=== PATIENT | male | born 1975 | race Caucasian/White ===

== ENCOUNTER 2017-09-24 13:08 | Emergency (ER) | payer SELFPAY ==
[~2017-09-24] VITALS: Ht 188 cm; Wt 121.6 kg
[2017-09-24 14:02] VITALS: BP 136/77
== END 2017-09-24 14:39 | disposition home or self-care (01) ==
LOC: ER 13:08
DX: J20.9 Acute bronchitis, unspecified (principal); F17.210 Nicotine dependence, cigarettes, uncomplicated

== ENCOUNTER 2017-12-15 15:10 | Inpatient (IN) | payer MEDICAID ==
[~2017-12-15] VITALS: Ht 188 cm; Wt 116.3 kg
[2017-12-15] MEDS ORDERED: SODIUM CHLORIDE 0.9% 1,000 ML IV ONE ×2 (15:28→15:47)
[2017-12-15 15:42] LABS: Eosinophils # (auto) 0.1 uL; Hematocrit 42.9 % (41.0-53.0); Lymphocytes # (auto) 1.5 uL; Mean Corpuscular Hemoglobin 35.1 pg (28.0-32.0); Mean Corpuscular Hgb Conc. 34.9 g/dL (32.0-36.0); Monocytes # (auto) 0.4 uL; Nucleated Red Blood Cells % 0.1 %; Red Blood Cells 4.27 10^6/uL (4.5-5.90)
[2017-12-15 15:46] LABS: Basophils # (auto) 0 uL; Basophils % (auto) 0.6 % (0.0-2.0); Eosinophils % (auto) 1.4 % (0.0-7.0); Lymphocytes % (auto) 19.4 % (10.0-50.0); Mean Corpuscular Volume 100.6 fL (80.0-100.0); Monocytes % (auto) 5.2 % (0.0-12.0); Neutrophils # (auto) 5.5 uL; Neutrophils % (auto) 73.4 % (37.0-80.0); Platelet Count (auto) 309 10^3/uL (140-450); Red Cell Distribution Width 11.8 % (11.8-14.3); White Blood Cell 7.5 10^3/uL (4.4-10.8)
[2017-12-15 16:00] LABS: Alanine Aminotransferase 61 U/L (16-61); Albumin 3.4 g/dL (3.4-5.0); Anion Gap 11 (5-15); Aspartate Aminotransferase 42 U/L (15-37); BUN/Creatinine Ratio 16.1; Blood Urea Nitrogen 41 mg/dL (7-18); Calcium 9.4 mg/dL (8.5-10.1); Carbon Dioxide 23 mmol/L (21-32); Chloride 90 mmol/L (98-107); GFR African American 36 mL/min; GFR Non-African American 30 mL/min; Potassium 5.3 mmol/L (3.5-5.1); Sodium 124 mmol/L (136-145); Total Protein 8.3 g/dL (6.4-8.2)
[2017-12-15] MEDS ORDERED: NALBUPHINE HCL 10 MG/1ml INJECTION IV ONE (16:00)
[2017-12-15] MEDS ORDERED: METOCLOPRAMIDE HCL 5MG/ml INJ 2ml VIAL IV ONE (16:00)
[2017-12-15 16:07] LABS: Alkaline Phosphatase 131 U/L (45-117); Bilirubin, Total 0.5 mg/dL (0.2-1.0)
[2017-12-15 16:25] LABS: Glucose 700 mg/dL (74-106)
[2017-12-15] MEDS ORDERED: InsuLIN R (HUMAN) 100 UNITS in SODIUM CHL 0.9% 99 ML IV SCH (17:26)
[2017-12-15] MEDS ORDERED: DEXTROSE (50%) 50ML SYRG IV PRN ×2 (17:30→17:45)
[2017-12-15] MEDS ORDERED: InsuLIN REG 1unit/0.01ml Soln (100units/ml) IV ONE (17:30)
[2017-12-15] MEDS ORDERED: ACETAMINOPHEN 500 MG TAB PO PRN (17:45)
[2017-12-15] MEDS ORDERED: HYDROcodone-ACET 5/325MG TAB PO PRN (17:45)
[2017-12-15] MEDS ORDERED: chlordiazePOXIDE HCL 25 MG CAP PO PRN (17:45)
[2017-12-15] MEDS ORDERED: NITROGLYCERIN 0.4 MG SL TAB SL PRN (17:45)
[2017-12-15] MEDS ORDERED: LORazepam 0.5 MG TAB PO PRN (17:45)
[2017-12-15] MEDS ORDERED: PROMETHAZINE HCL 25 MG/ML 1ML IV PRN (17:45)
[2017-12-15] MEDS ORDERED: THIAMINE 100mg/ml INJ (200mg/2ml VIAL) IV ONE (17:45)
[2017-12-15] MEDS ORDERED: MORPHINE SULFATE 8mg/ml INJ SDV IV PRN ×3 (17:45→18:30)
[2017-12-15] MEDS: ACCU-CHEK COMFORT CURVE STRIP VI SCH ×5 (17:49→23:48)
[2017-12-15] MEDS ORDERED: LIDOCAINE HCL 2% TOP JELLY 5ML TOP ONE (18:05)
[2017-12-15 18:09] LABS: Urine Bacteria NONE SEEN /hpf (None Seen); Urine Blood Negative /uL (Negative); Urine WBC 9 /hpf (0 - 3)
[2017-12-15 18:22] LABS: INR 0.86 (0.9-1.15); Partial Thromboplastin Time 25.7 sec (22.64-33.71); Prothrombin Time 9.4 sec (9.37-12.3)
[2017-12-15 18:25] LABS: Alcohol, Urine < 3.0 mg/dL (0-5); Amphetamine Screen, Urine NEGATIVE (NEGATIVE); Barbiturate Scree,Urine NEGATIVE (NEGATIVE); Benzodiazephine Screen, Urine NEGATIVE (NEGATIVE); Cannabinoid Screen, Urine NEGATIVE (NEGATIVE); Cocaine Screen, Urine NEGATIVE (NEGATIVE); Opiate Scree,Urine NEGATIVE (NEGATIVE); Phencyclidine Screen, Urine NEGATIVE (NEGATIVE)
[2017-12-15] MEDS: SODIUM CHLORIDE 0.9% 1,000 ML IV SCH (18:29)
[2017-12-15] MEDS ORDERED: LIDOCAINE 2% (LOCAL ANESTH.) PF 5ml SDV IJ ONE (18:30)
[2017-12-15] MEDS: chlordiazePOXIDE HCL 5 MG CAP PO SCH (18:35)
[2017-12-15 18:38] LABS: CRP High Sensitivity 3.24 mg/dL (< 0.3)
[2017-12-15] MEDS: NYSTATIN TOPICAL POWDER 15GM TOP SCH (21:51)
[2017-12-16] MEDS: SODIUM CHLORIDE 0.9% 1,000 ML IV SCH ×4 (00:06→21:02)
[2017-12-16] MEDS: ACCU-CHEK COMFORT CURVE STRIP VI SCH ×6 (01:48→08:36)
[2017-12-16] MEDS: chlordiazePOXIDE HCL 5 MG CAP PO SCH ×4 (05:51→17:52)
[2017-12-16 07:10] LABS: Basophils # (auto) 0 uL; Eosinophils # (auto) 0.2 uL; Hemoglobin 12.4 g/dL (13.5-17.5); Monocytes # (auto) 0.5 uL
[2017-12-16 07:13] LABS: Basophils % (auto) 0.3 % (0.0-2.0); Eosinophils % (auto) 2.1 % (0.0-7.0); Lymphocytes # (auto) 1.8 uL; Lymphocytes % (auto) 19.5 % (10.0-50.0); Mean Corpuscular Hgb Conc. 35.4 g/dL (32.0-36.0); Mean Corpuscular Volume 98.8 fL (80.0-100.0); Neutrophils # (auto) 6.5 uL; Neutrophils % (auto) 72.1 % (37.0-80.0); Platelet Count (auto) 241 10^3/uL (140-450); Red Blood Cells 3.55 10^6/uL (4.5-5.90); Red Cell Distribution Width 11.7 % (11.8-14.3)
[2017-12-16 07:37] LABS: Albumin 2.9 g/dL (3.4-5.0); BUN/Creatinine Ratio 18.4; Bilirubin, Total 0.3 mg/dL (0.2-1.0); Calcium 8.7 mg/dL (8.5-10.1); Potassium 4.4 mmol/L (3.5-5.1); Total Protein 6.4 g/dL (6.4-8.2)
[2017-12-16] MEDS ORDERED: ACCU-CHEK COMFORT CURVE STRIP VI SCH (08:30)
[2017-12-16] MEDS ORDERED: DEXTROSE (50%) 50ML SYRG IV PRN ×2 (08:30→09:45)
[2017-12-16] MEDS ORDERED: SUCCINYLCHOLINE CHLORIDE 20 MG/ML 10ML VIAL IV ONE (08:59)
[2017-12-16] MEDS ORDERED: PROPOFOL 10 MG/ML 20 ML IV ONE (09:02)
[2017-12-16] MEDS ORDERED: ROCURONIUM 10MG/ML 10ML VIAL IV ONE (09:02)
[2017-12-16] MEDS ORDERED: LIDOCAINE HCL 2 %PF INJ 10ML AMP IJ ONE (09:02)
[2017-12-16] MEDS ORDERED: MIDAZOLAM HCL 1MG/1ML-2 ML VIAL ONE (09:02)
[2017-12-16] MEDS ORDERED: ceFAZolin 1GM/100ML 50 ML IV ONE (09:18)
[2017-12-16] MEDS ORDERED: METOCLOPRAMIDE HCL 5MG/ml INJ 2ml VIAL ONE (09:27)
[2017-12-16] MEDS ORDERED: MORPHINE SULFATE 8mg/ml INJ SDV IV PRN ×2 (09:30→10:30)
[2017-12-16] MEDS ORDERED: NALOXONE HCL 0.4 MG/ML VIAL IV PRN (09:30)
[2017-12-16] MEDS ORDERED: ONDANSETRON HCL 4 MG/2 ML VIAL IV ONE (09:30)
[2017-12-16] MEDS ORDERED: ACCU-CHEK COMFORT CURVE STRIP VI ONE (09:30)
[2017-12-16] MEDS ORDERED: fentaNYL CITRATE 100 MCG/2 ML VL ONE (09:36)
[2017-12-16 12:00] VITALS: BP 147/101
[2017-12-16] MEDS: PANTOPRAZOLE 40 MG TAB PO SCH (12:36)
[2017-12-16] MEDS: THIAMINE 100mg/ml INJ (200mg/2ml VIAL) IV SCH (12:36)
[2017-12-16] MEDS: InsuLIN REG 1unit/0.01ml Soln (100units/ml) SC SCH ×3 (12:38→21:02)
[2017-12-16 13:00] VITALS: BP 147/101
[2017-12-16] MEDS ORDERED: FUROSEMIDE 40 MG/4 ML VIAL IV ONE (15:00)
[2017-12-16] MEDS ORDERED: NICOTINE 21MG/24 HR TOPICAL PATCH TD ONE (16:45)
[2017-12-16] MEDS: NYSTATIN TOPICAL POWDER 15GM TOP SCH ×2 (16:50→21:02)
[2017-12-16 17:00] VITALS: BP 114/84
[2017-12-16] MEDS: glipiZIDE 5 MG TAB PO SCH (17:48)
[2017-12-16 21:45] VITALS: BP 107/75
[2017-12-17] MEDS: chlordiazePOXIDE HCL 5 MG CAP PO SCH ×5 (00:33→23:34)
[2017-12-17] MEDS: InsuLIN REG 1unit/0.01ml Soln (100units/ml) SC SCH ×6 (00:45→22:41)
[2017-12-17] MEDS: SODIUM CHLORIDE 0.9% 1,000 ML IV SCH ×3 (02:56→16:16)
[2017-12-17 05:00] VITALS: BP 126/75
[2017-12-17] MEDS: glipiZIDE 5 MG TAB PO SCH ×2 (06:06→17:45)
[2017-12-17 07:48] VITALS: BP 138/87
[2017-12-17] MEDS: NICOTINE 21MG/24 HR TOPICAL PATCH TD SCH (10:00)
[2017-12-17] MEDS: PANTOPRAZOLE 40 MG TAB PO SCH (10:22)
[2017-12-17] MEDS: NYSTATIN TOPICAL POWDER 15GM TOP SCH ×2 (10:23→22:42)
[2017-12-17] MEDS: THIAMINE 100mg/ml INJ (200mg/2ml VIAL) IV SCH (10:23)
[2017-12-17] MEDS ORDERED: DEXTROSE (50%) 50ML SYRG IV PRN (10:30)
[2017-12-17 11:24] VITALS: BP 105/69
[2017-12-17] MEDS: ACCU-CHEK COMFORT CURVE STRIP VI SCH ×3 (11:45→22:00)
[2017-12-17 16:29] VITALS: BP 95/64
[2017-12-17 22:00] VITALS: BP 140/80
[2017-12-17] MEDS ORDERED: INSULIN LANTUS (GLARGINE) 1 /0.01ml (100units/ml) SC SCH (22:00)
[2017-12-17] MEDS: TEMAZEPAM 15 MG CAP PO PRN (22:59)
[2017-12-18] MEDS: SODIUM CHLORIDE 0.9% 1,000 ML IV SCH ×3 (01:11→18:56)
[2017-12-18 05:00] VITALS: BP 119/73
[2017-12-18] MEDS: chlordiazePOXIDE HCL 5 MG CAP PO SCH ×3 (06:07→17:41)
[2017-12-18 06:10] LABS: BUN/Creatinine Ratio 8.5; Calcium 8.1 mg/dL (8.5-10.1); Potassium 4.5 mmol/L (3.5-5.1)
[2017-12-18 06:11] LABS: Eosinophils # (auto) 0.2 uL; Hematocrit 35.9 % (41.0-53.0); Hemoglobin 12.3 g/dL (13.5-17.5); Mean Corpuscular Hgb Conc. 34.3 g/dL (32.0-36.0); Neutrophils # (auto) 4.6 uL
[2017-12-18 06:13] LABS: Basophils # (auto) 0 uL; Basophils % (auto) 0.6 % (0.0-2.0); Eosinophils % (auto) 2.2 % (0.0-7.0); Lymphocytes # (auto) 2.1 uL; Lymphocytes % (auto) 28.2 % (10.0-50.0); Mean Corpuscular Hemoglobin 34.4 pg (28.0-32.0); Mean Corpuscular Volume 100.4 fL (80.0-100.0); Monocytes # (auto) 0.6 uL; Monocytes % (auto) 7.4 % (0.0-12.0); Neutrophils % (auto) 61.6 % (37.0-80.0); Nucleated Red Blood Cells % 0.1 %; Platelet Count (auto) 223 10^3/uL (140-450); Red Blood Cells 3.57 10^6/uL (4.5-5.90); Red Cell Distribution Width 11.7 % (11.8-14.3); White Blood Cell 7.5 10^3/uL (4.4-10.8)
[2017-12-18] MEDS: ACCU-CHEK COMFORT CURVE STRIP VI SCH ×4 (06:20→22:00)
[2017-12-18] MEDS: InsuLIN REG 1unit/0.01ml Soln (100units/ml) SC SCH ×4 (06:20→21:41)
[2017-12-18] MEDS: glipiZIDE 5 MG TAB PO SCH (06:20)
[2017-12-18 08:09] VITALS: BP 121/66
[2017-12-18] MEDS: NICOTINE 21MG/24 HR TOPICAL PATCH TD SCH (09:36)
[2017-12-18] MEDS: PANTOPRAZOLE 40 MG TAB PO SCH (09:36)
[2017-12-18] MEDS: THIAMINE 100mg/ml INJ (200mg/2ml VIAL) IV SCH (09:36)
[2017-12-18] MEDS: NYSTATIN TOPICAL POWDER 15GM TOP SCH ×2 (09:37→21:38)
[2017-12-18 12:56] VITALS: BP 104/70
[2017-12-18 17:04] VITALS: BP 105/60
[2017-12-18] MEDS: INSULIN LANTUS (GLARGINE) 1 /0.01ml (100units/ml) SC SCH (21:35)
[2017-12-18] MEDS: TEMAZEPAM 15 MG CAP PO PRN (21:38)
[2017-12-18 22:00] VITALS: BP 109/71
[2017-12-19] MEDS: SODIUM CHLORIDE 0.9% 1,000 ML IV SCH ×4 (01:36→21:36)
[2017-12-19 05:00] VITALS: BP 116/78
[2017-12-19] MEDS: ACCU-CHEK COMFORT CURVE STRIP VI SCH ×4 (06:28→22:00)
[2017-12-19] MEDS: chlordiazePOXIDE HCL 5 MG CAP PO SCH ×4 (06:29→17:08)
[2017-12-19] MEDS: InsuLIN REG 1unit/0.01ml Soln (100units/ml) SC SCH ×4 (06:30→22:00)
[2017-12-19 07:07] LABS: Eosinophils # (auto) 0.2 uL; Hematocrit 35.6 % (41.0-53.0); Hemoglobin 12.2 g/dL (13.5-17.5); Mean Corpuscular Hgb Conc. 34.3 g/dL (32.0-36.0); Monocytes # (auto) 0.5 uL; Monocytes % (auto) 6.9 % (0.0-12.0); Red Cell Distribution Width 11.6 % (11.8-14.3)
[2017-12-19 07:08] LABS: Calcium 8.3 mg/dL (8.5-10.1); Potassium 3.8 mmol/L (3.5-5.1)
[2017-12-19 07:10] LABS: Basophils # (auto) 0.1 uL; Basophils % (auto) 0.7 % (0.0-2.0); Eosinophils % (auto) 2.2 % (0.0-7.0); Mean Corpuscular Hemoglobin 34.4 pg (28.0-32.0); Mean Corpuscular Volume 100.5 fL (80.0-100.0); Neutrophils # (auto) 4.6 uL; Neutrophils % (auto) 63.2 % (37.0-80.0); Nucleated Red Blood Cells % 0.1 %; Platelet Count (auto) 243 10^3/uL (140-450); Red Blood Cells 3.55 10^6/uL (4.5-5.90); White Blood Cell 7.3 10^3/uL (4.4-10.8)
[2017-12-19 09:00] VITALS: BP 126/78
[2017-12-19] MEDS: NICOTINE 21MG/24 HR TOPICAL PATCH TD SCH (10:00)
[2017-12-19] MEDS: THIAMINE 100mg/ml INJ (200mg/2ml VIAL) IV SCH (10:51)
[2017-12-19] MEDS: PANTOPRAZOLE 40 MG TAB PO SCH (10:51)
[2017-12-19] MEDS: NYSTATIN TOPICAL POWDER 15GM TOP SCH ×2 (10:52→22:00)
[2017-12-19 15:45] VITALS: BP 116/74
[2017-12-19 22:00] VITALS: BP 117/70
[2017-12-19] MEDS: INSULIN LANTUS (GLARGINE) 1 /0.01ml (100units/ml) SC SCH (22:00)
[2017-12-20] VITALS (7 sets, daily range): BP systolic 94–127; BP diastolic 58–85
[2017-12-20] MEDS: chlordiazePOXIDE HCL 5 MG CAP PO SCH ×4 (00:53→17:35)
[2017-12-20] MEDS: TEMAZEPAM 15 MG CAP PO PRN (00:53)
[2017-12-20] MEDS: SODIUM CHLORIDE 0.9% 1,000 ML IV SCH ×3 (04:16→18:51)
[2017-12-20] MEDS: ACCU-CHEK COMFORT CURVE STRIP VI SCH ×4 (05:44→22:26)
[2017-12-20] MEDS: InsuLIN REG 1unit/0.01ml Soln (100units/ml) SC SCH ×4 (06:16→22:37)
[2017-12-20 06:46] LABS: Hemoglobin 13.1 g/dL (13.5-17.5); Mean Corpuscular Hemoglobin 34.2 pg (28.0-32.0); Monocytes # (auto) 0.4 uL; Neutrophils # (auto) 6.6 uL; Platelet Count (auto) 264 10^3/uL (140-450); Red Blood Cells 3.83 10^6/uL (4.5-5.90); Red Cell Distribution Width 11.7 % (11.8-14.3); White Blood Cell 8.3 10^3/uL (4.4-10.8)
[2017-12-20 06:50] LABS: Basophils # (auto) 0 uL; Basophils % (auto) 0.2 % (0.0-2.0); Eosinophils # (auto) 0.1 uL; Eosinophils % (auto) 1.8 % (0.0-7.0); Hematocrit 38.3 % (41.0-53.0); Lymphocytes # (auto) 1.1 uL; Lymphocytes % (auto) 13.3 % (10.0-50.0); Mean Corpuscular Hgb Conc. 34.1 g/dL (32.0-36.0); Mean Corpuscular Volume 100.2 fL (80.0-100.0); Monocytes % (auto) 5.3 % (0.0-12.0); Neutrophils % (auto) 79.4 % (37.0-80.0); Nucleated Red Blood Cells % 0.1 %
[2017-12-20 06:58] LABS: Calcium 8.4 mg/dL (8.5-10.1); Potassium 3.7 mmol/L (3.5-5.1)
[2017-12-20] MEDS ORDERED: ADENOSINE 99 MG in GIVE UN-DILUTED 0 ML IV STA (09:20)
[2017-12-20] MEDS: NYSTATIN TOPICAL POWDER 15GM TOP SCH ×2 (10:00→22:26)
[2017-12-20] MEDS: NICOTINE 21MG/24 HR TOPICAL PATCH TD SCH (10:00)
[2017-12-20] MEDS: THIAMINE 100mg/ml INJ (200mg/2ml VIAL) IV SCH (12:35)
[2017-12-20] MEDS: PANTOPRAZOLE 40 MG TAB PO SCH (12:35)
[2017-12-20] MEDS: INSULIN LANTUS (GLARGINE) 1 /0.01ml (100units/ml) SC SCH (22:39)
[2017-12-21] VITALS (7 sets, daily range): BP systolic 110–131; BP diastolic 63–80
[2017-12-21] MEDS: chlordiazePOXIDE HCL 5 MG CAP PO SCH ×5 (06:57→19:21)
[2017-12-21] MEDS: SODIUM CHLORIDE 0.9% 1,000 ML IV SCH ×3 (06:58→14:45)
[2017-12-21] MEDS: InsuLIN REG 1unit/0.01ml Soln (100units/ml) SC SCH ×4 (06:58→22:00)
[2017-12-21] MEDS: ACCU-CHEK COMFORT CURVE STRIP VI SCH ×4 (06:59→22:00)
[2017-12-21 07:23] LABS: Basophils # (auto) 0 uL; Eosinophils # (auto) 0.3 uL; Eosinophils % (auto) 2.6 % (0.0-7.0); Monocytes # (auto) 0.7 uL
[2017-12-21 07:24] LABS: BUN/Creatinine Ratio 9.3; Calcium 8.4 mg/dL (8.5-10.1); Potassium 3.5 mmol/L (3.5-5.1)
[2017-12-21 07:27] LABS: Basophils % (auto) 0.5 % (0.0-2.0); Hematocrit 33.3 % (41.0-53.0); Hemoglobin 11.4 g/dL (13.5-17.5); Lymphocytes # (auto) 1.9 uL; Lymphocytes % (auto) 18.3 % (10.0-50.0); Mean Corpuscular Hemoglobin 34.2 pg (28.0-32.0); Mean Corpuscular Hgb Conc. 34.2 g/dL (32.0-36.0); Monocytes % (auto) 6.8 % (0.0-12.0); Neutrophils # (auto) 7.4 uL; Neutrophils % (auto) 71.8 % (37.0-80.0); Nucleated Red Blood Cells % 0.1 %; Platelet Count (auto) 248 10^3/uL (140-450); Red Blood Cells 3.33 10^6/uL (4.5-5.90); Red Cell Distribution Width 11.7 % (11.8-14.3); White Blood Cell 10.3 10^3/uL (4.4-10.8)
[2017-12-21] MEDS: NICOTINE 21MG/24 HR TOPICAL PATCH TD SCH (10:00)
[2017-12-21] MEDS: PANTOPRAZOLE 40 MG TAB PO SCH (10:13)
[2017-12-21] MEDS: THIAMINE 100mg/ml INJ (200mg/2ml VIAL) IV SCH (10:13)
[2017-12-21] MEDS: NYSTATIN TOPICAL POWDER 15GM TOP SCH ×2 (10:14→22:00)
[2017-12-21] MEDS ORDERED: LACTULOSE 20Gm/30ML SOLN PO PRN (16:30)
[2017-12-21] MEDS: INSULIN LANTUS (GLARGINE) 1 /0.01ml (100units/ml) SC SCH (22:00)
[2017-12-22] MEDS: SODIUM CHLORIDE 0.9% 1,000 ML IV SCH ×3 (00:40→09:36)
[2017-12-22] MEDS: chlordiazePOXIDE HCL 5 MG CAP PO SCH ×3 (00:40→14:58)
[2017-12-22] MEDS: TEMAZEPAM 15 MG CAP PO PRN (00:44)
[2017-12-22 05:29] VITALS: BP 109/66
[2017-12-22] MEDS: ACCU-CHEK COMFORT CURVE STRIP VI SCH ×2 (06:34→12:54)
[2017-12-22] MEDS: InsuLIN REG 1unit/0.01ml Soln (100units/ml) SC SCH ×2 (06:35→12:55)
[2017-12-22] MEDS ORDERED: IOHEXOL 350 MG/ML 100ML IJ ONE ×3 (07:21→10:03)
[2017-12-22] MEDS ORDERED: LIDOCAINE 2%HCL (LOCAL ANESTH.) INJ 20ML MDV ONE ×2 (07:22→09:20)
[2017-12-22 07:35] LABS: Basophils # (auto) 0 uL; Basophils % (auto) 0.4 % (0.0-2.0); Eosinophils # (auto) 0.3 uL; Eosinophils % (auto) 2.8 % (0.0-7.0); Hematocrit 33.7 % (41.0-53.0); Hemoglobin 11.6 g/dL (13.5-17.5); Lymphocytes # (auto) 1.7 uL; Lymphocytes % (auto) 17.6 % (10.0-50.0); Mean Corpuscular Hgb Conc. 34.3 g/dL (32.0-36.0); Mean Corpuscular Volume 99.1 fL (80.0-100.0); Monocytes # (auto) 0.6 uL; Monocytes % (auto) 6.5 % (0.0-12.0); Neutrophils # (auto) 6.9 uL; Neutrophils % (auto) 72.7 % (37.0-80.0); Platelet Count (auto) 279 10^3/uL (140-450); Red Cell Distribution Width 11.8 % (11.8-14.3); White Blood Cell 9.4 10^3/uL (4.4-10.8)
[2017-12-22 08:00] LABS: BUN/Creatinine Ratio 7.4; Calcium 8.1 mg/dL (8.5-10.1); INR 0.94 (0.9-1.15); Partial Thromboplastin Time 31.3 sec (22.64-33.71); Potassium 3.3 mmol/L (3.5-5.1); Prothrombin Time 10.2 sec (9.37-12.3)
[2017-12-22] MEDS ORDERED: MIDAZOLAM HCL 1MG/1ML-2 ML VIAL ONE (09:21)
[2017-12-22] MEDS ORDERED: fentaNYL CITRATE 100 MCG/2 ML VL ONE (09:21)
[2017-12-22] MEDS ORDERED: SODIUM CHL 0.9% 50 ML ONE ×2 (09:37→10:13)
[2017-12-22] MEDS ORDERED: ANGIOMAX 250 MG VIAL IV ONE ×2 (09:37→10:13)
[2017-12-22] MEDS: THIAMINE 100mg/ml INJ (200mg/2ml VIAL) IV SCH (10:00)
[2017-12-22] MEDS: NICOTINE 21MG/24 HR TOPICAL PATCH TD SCH (10:00)
[2017-12-22] MEDS: PANTOPRAZOLE 40 MG TAB PO SCH (10:00)
[2017-12-22] MEDS ORDERED: CLOPIDOGREL 300 MG TAB ONE (10:04)
[2017-12-22] MEDS ORDERED: ASPirin 325 MG TAB ONE (10:04)
[2017-12-22] MEDS ORDERED: POTASSIUM CHL 10 Meq TABLET PO ONE (12:30)
[2017-12-22] MEDS: NYSTATIN TOPICAL POWDER 15GM TOP SCH (12:54)
[2017-12-22 16:45] VITALS: BP 116/79
[2017-12-23] MEDS ORDERED: CLOPIDOGREL BISULFATE 75 MG TAB PO SCH (10:00)
== END 2017-12-22 18:18 | disposition home or self-care (01) | DRG 175 ==
LOC: ER 15:18 → ICU CENTRL 15:19 → OVERFLOW 23:58 → TELE-CENTR 12-16 11:24
PROVIDERS: ADMIT Internal Medicine; ATTEND Internal Medicine
PROC: 027036Z Dilation of Coronary Artery, One Artery with Three Drug-eluting Intraluminal Devices, Percutaneous Approach (ICD-10-PCS; 2017-12-15)
PROC: 4A023N7 Measurement of Cardiac Sampling and Pressure, Left Heart, Percutaneous Approach (ICD-10-PCS; 2017-12-15)
PROC: 0T7D8ZZ Dilation of Urethra, Via Natural or Artificial Opening Endoscopic (ICD-10-PCS; principal; 2017-12-21)
PROC: B2011ZZ Plain Radiography of Multiple Coronary Arteries using Low Osmolar Contrast (ICD-10-PCS; 2017-12-22)
PROC: B2051ZZ Plain Radiography of Left Heart using Low Osmolar Contrast (ICD-10-PCS; 2017-12-22)
DX: I25.10 Atherosclerotic heart disease of native coronary artery without angina pectoris (principal); N17.0 Acute kidney failure with tubular necrosis; E11.00 Type 2 diabetes mellitus with hyperosmolarity without nonketotic hyperglycemic-hyperosmolar coma (NKHHC); E11.21 Type 2 diabetes mellitus with diabetic nephropathy; E11.40 Type 2 diabetes mellitus with diabetic neuropathy, unspecified; N35.9 Urethral stricture, unspecified; E11.22 Type 2 diabetes mellitus with diabetic chronic kidney disease; N40.1 Benign prostatic hyperplasia with lower urinary tract symptoms; E87.1 Hypo-osmolality and hyponatremia; E87.6 Hypokalemia; N13.30 Unspecified hydronephrosis; N18.9 Chronic kidney disease, unspecified; E44.1 Mild protein-calorie malnutrition; E87.5 Hyperkalemia; E66.9 Obesity, unspecified; Z68.32 Body mass index [BMI] 32.0-32.9, adult; F10.20 Alcohol dependence, uncomplicated; F17.210 Nicotine dependence, cigarettes, uncomplicated; F41.9 Anxiety disorder, unspecified; I12.9 Hypertensive chronic kidney disease with stage 1 through stage 4 chronic kidney disease, or unspecified chronic kidney disease; M47.816 Spondylosis without myelopathy or radiculopathy, lumbar region; N13.1 Hydronephrosis with ureteral stricture, not elsewhere classified; N31.9 Neuromuscular dysfunction of bladder, unspecified; Z79.02 Long term (current) use of antithrombotics/antiplatelets; Z79.899 Other long term (current) drug therapy; Z91.11 Patient's noncompliance with dietary regimen
CPT/HCPCS: 36415; 51702; 71045; 71046; 74176; 78707; 80048; 80053; 80061; 80307; 81001; 82150; 82550; 82962; 83036; 83690; 83735; 83880; 84443; 84484; 85025; 85610; 85652; 85730; 86141; 86850; 86900; 86901; 87086; 93005; 93306; 96365; 96375; 96376; 97116; 99152; 99153; 99291; C1874; C1887; G0378; J0153; J0330; J0690; J1815; J2250; J2704

== ENCOUNTER 2017-12-31 16:03 | Emergency (ER) | payer MEDICAID ==
[~2017-12-31] VITALS: Ht 188 cm; Wt 117.5 kg
[2017-12-31] MEDS ORDERED: SODIUM CHLORIDE 0.9% 1,000 ML IV ONE (16:45)
[2017-12-31 17:11] LABS: Basophils # (auto) 0.1 uL; Basophils % (auto) 0.5 % (0.0-2.0); Eosinophils # (auto) 0.4 uL; Hemoglobin 13.1 g/dL (13.5-17.5); Lymphocytes # (auto) 1.8 uL; Mean Corpuscular Volume 97.9 fL (80.0-100.0); Monocytes # (auto) 0.4 uL; Neutrophils # (auto) 9.1 uL
[2017-12-31] MEDS ORDERED: ATOR10TA52 PO (17:12)
[2017-12-31 17:13] LABS: Eosinophils % (auto) 3.5 % (0.0-7.0); Lymphocytes % (auto) 15.2 % (10.0-50.0); Mean Corpuscular Hemoglobin 33.8 pg (28.0-32.0); Mean Corpuscular Hgb Conc. 34.6 g/dL (32.0-36.0); Monocytes % (auto) 3.7 % (0.0-12.0); Neutrophils % (auto) 77.1 % (37.0-80.0); Nucleated Red Blood Cells % 0.1 %; Platelet Count (auto) 458 10^3/uL (140-450); Red Blood Cells 3.88 10^6/uL (4.5-5.90); Red Cell Distribution Width 11.6 % (11.8-14.3); White Blood Cell 11.7 10^3/uL (4.4-10.8)
[2017-12-31] MEDS ORDERED: CLOP75TA41 PO (17:13)
[2017-12-31] MEDS ORDERED: METO25TA62 PO (17:13)
[2017-12-31] MEDS ORDERED: INSLANTI SC (17:14)
[2017-12-31 17:22] LABS: Calcium 9.2 mg/dL (8.5-10.1); Chloride 95 mmol/L (98-107); Sodium 136 mmol/L (136-145)
[2017-12-31 17:26] LABS: Alanine Aminotransferase 23 U/L (16-61); Albumin 2.9 g/dL (3.4-5.0); Anion Gap 15 (5-15); Aspartate Aminotransferase 19 U/L (15-37); BUN/Creatinine Ratio 7.4; Blood Urea Nitrogen 9 mg/dL (7-18); Carbon Dioxide 26 mmol/L (21-32); GFR African American 85 mL/min; GFR Non-African American 70 mL/min; Glucose 226 mg/dL (74-106)
[2017-12-31 17:32] LABS: Alkaline Phosphatase 99 U/L (45-117); Bilirubin, Total 0.5 mg/dL (0.2-1.0); Total Protein 8.1 g/dL (6.4-8.2)
[2017-12-31] MEDS ORDERED: ACETAMINOPHEN 325 MG TAB PO ONE (18:15)
[2017-12-31 20:45] VITALS: BP 98/54
[2017-12-31] MEDS ORDERED: NITROGLYCERIN 0.4 MG SL TAB SL PRN (21:00)
[2017-12-31] MEDS ORDERED: ONDANSETRON HCL 4 MG/2 ML VIAL IV PRN (21:00)
[2017-12-31] MEDS ORDERED: DEXTROSE (50%) 50ML SYRG IV PRN (21:00)
[2017-12-31] MEDS ORDERED: MORPHINE SULFATE 8mg/ml INJ SDV IV PRN (21:00)
[2017-12-31] MEDS ORDERED: HYDROcodone-ACET 5/325MG TAB PO PRN (21:00)
[2017-12-31] MEDS ORDERED: TEMAZEPAM 15 MG CAP PO PRN (21:00)
[2017-12-31] MEDS ORDERED: ACETAMINOPHEN 325 MG TAB PO PRN (21:00)
[2017-12-31] MEDS ORDERED: FAMOTIDINE 20 MG TAB PO SCH (22:00)
[2017-12-31] MEDS ORDERED: ATORVASTATIN 20 MG TAB PO SCH (22:00)
[2018-01-01] MEDS ORDERED: InsuLIN REG 1unit/0.01ml Soln (100units/ml) SC SCH
[2018-01-01] MEDS ORDERED: ACCU-CHEK COMFORT CURVE STRIP VI SCH
[2018-01-01] MEDS ORDERED: ENOXAPARIN SOD 40 MG/0.4 ML SYRINGE SC SCH (10:00)
[2018-01-01] MEDS ORDERED: CLOPIDOGREL BISULFATE 75 MG TAB PO SCH (10:00)
== END 2017-12-31 21:48 | disposition home or self-care (01) ==
LOC: ER 16:06
DX: R55 Syncope and collapse (principal); D64.9 Anemia, unspecified; I95.9 Hypotension, unspecified; I25.10 Atherosclerotic heart disease of native coronary artery without angina pectoris; E11.9 Type 2 diabetes mellitus without complications; E78.5 Hyperlipidemia, unspecified; I25.2 Old myocardial infarction; F17.210 Nicotine dependence, cigarettes, uncomplicated; R53.1 Weakness; E66.9 Obesity, unspecified; Z68.33 Body mass index [BMI] 33.0-33.9, adult; Z79.4 Long term (current) use of insulin; Z98.61 Coronary angioplasty status; Z95.5 Presence of coronary angioplasty implant and graft
CPT/HCPCS: 36415; 70450; 71045; 80053; 84484; 85025; 93005

== ENCOUNTER 2018-01-13 13:02 | Emergency (ER) | payer MEDICAID ==
[~2018-01-13] VITALS: Ht 188 cm; Wt 105.7 kg
[~2018-01-13 13:02] MED LIST: ATOR10TA52 PO; CLOP75TA41 PO; INSLANTI SC; METO25TA62 PO
[2018-01-13 13:12] VITALS: BP 79/58
== END 2018-01-13 14:52 | disposition home or self-care (01) ==
LOC: ER 13:02
DX: N40.1 Benign prostatic hyperplasia with lower urinary tract symptoms (principal); R33.9 Retention of urine, unspecified; E11.22 Type 2 diabetes mellitus with diabetic chronic kidney disease; N18.9 Chronic kidney disease, unspecified; I25.10 Atherosclerotic heart disease of native coronary artery without angina pectoris; E78.5 Hyperlipidemia, unspecified; F17.210 Nicotine dependence, cigarettes, uncomplicated; I25.2 Old myocardial infarction; E11.40 Type 2 diabetes mellitus with diabetic neuropathy, unspecified; Z79.4 Long term (current) use of insulin

== ENCOUNTER 2018-01-19 09:18 | Inpatient (IN) | payer MEDICAID ==
[~2018-01-19] VITALS: Ht 188 cm; Wt 109.1 kg
[2018-01-19 10:00] LABS: Basophils # (auto) 0 uL; Basophils % (auto) 0.3 % (0.0-2.0); Eosinophils # (auto) 0 uL; Eosinophils % (auto) 0.2 % (0.0-7.0); Hematocrit 34.9 % (41.0-53.0); Hemoglobin 11.9 g/dL (13.5-17.5); Lymphocytes % (auto) 6.6 % (10.0-50.0); Mean Corpuscular Hemoglobin 32.6 pg (28.0-32.0); Mean Corpuscular Hgb Conc. 34.2 g/dL (32.0-36.0); Mean Corpuscular Volume 95.4 fL (80.0-100.0); Monocytes # (auto) 0.9 uL; Monocytes % (auto) 6.2 % (0.0-12.0); Neutrophils # (auto) 12.5 uL; Neutrophils % (auto) 86.7 % (37.0-80.0); Platelet Count (auto) 444 10^3/uL (140-450); Red Blood Cells 3.66 10^6/uL (4.5-5.90); Red Cell Distribution Width 12.4 % (11.8-14.3); White Blood Cell 14.4 10^3/uL (4.4-10.8)
[2018-01-19] MEDS: METOPROLOL SUCCINATE XL 50 MG TAB PO SCH (10:00)
[2018-01-19 10:16] LABS: Albumin 2.7 g/dL (3.4-5.0); Anion Gap 13 (5-15); Blood Urea Nitrogen 16 mg/dL (7-18); Calcium 8.7 mg/dL (8.5-10.1); Carbon Dioxide 20 mmol/L (21-32); Chloride 102 mmol/L (98-107); Glucose 202 mg/dL (74-106); Potassium 4.2 mmol/L (3.5-5.1); Sodium 135 mmol/L (136-145)
[2018-01-19 10:18] LABS: Alanine Aminotransferase 16 U/L (16-61); Aspartate Aminotransferase 9 U/L (15-37); BUN/Creatinine Ratio 11.1; GFR African American 69 mL/min; GFR Non-African American 57 mL/min
[2018-01-19 10:23] LABS: Alkaline Phosphatase 100 U/L (45-117); Bilirubin, Total 0.5 mg/dL (0.2-1.0)
[2018-01-19] MEDS ORDERED: SODIUM CHLORIDE 0.9% 1,000 ML IVB ONE (11:05)
[2018-01-19 11:39] LABS: INR 0.95 (0.9-1.15); Partial Thromboplastin Time 37.3 sec (23.78-33.04); Prothrombin Time 10.2 sec (9.27-12.13)
[2018-01-19 11:58] LABS: Urine Bacteria MANY /hpf (None Seen); Urine Blood TRACE /uL (Negative); Urine Specific Gravity 1.009 (1.001-1.035); Urine WBC 758 /hpf (0 - 3); Urine WBC Clumps PRESENT /hpf (None Seen)
[2018-01-19] MEDS ORDERED: ONDANSETRON HCL 4 MG/2 ML VIAL ONE (12:09)
[2018-01-19] MEDS ORDERED: cefTRIAXone 1GM/10ml IVPUSH 10 ML IV ONE ×2 (12:09→12:15)
[2018-01-19] MEDS ORDERED: ONDANSETRON HCL 4 MG/2 ML VIAL IV ONE (12:15)
[2018-01-19 12:44] LABS: Alcohol, Urine < 3.0 mg/dL (0-5); Amphetamine Screen, Urine NEGATIVE (NEGATIVE); Barbiturate Scree,Urine NEGATIVE (NEGATIVE); Benzodiazephine Screen, Urine NEGATIVE (NEGATIVE); Cannabinoid Screen, Urine NEGATIVE (NEGATIVE); Cocaine Screen, Urine NEGATIVE (NEGATIVE); Opiate Scree,Urine NEGATIVE (NEGATIVE); Phencyclidine Screen, Urine NEGATIVE (NEGATIVE)
[2018-01-19] MEDS ORDERED: NITROGLYCERIN 0.4 MG SL TAB SL PRN (13:15)
[2018-01-19] MEDS ORDERED: DEXTROSE (50%) 50ML SYRG IV PRN (13:15)
[2018-01-19] MEDS ORDERED: PANTOPRAZOLE 40 MG/10 ML VIAL IV ONE (13:15)
[2018-01-19] MEDS ORDERED: LACTULOSE 20Gm/30ML SOLN PO PRN (13:15)
[2018-01-19] MEDS ORDERED: LORazepam 0.5 MG TAB PO PRN (13:15)
[2018-01-19] MEDS ORDERED: MORPHINE SULFATE 8mg/ml INJ SDV IV PRN ×2 (13:15)
[2018-01-19] MEDS ORDERED: PIPERACILLIN-TAZOB 3.375GM 100 ML IV ONE (13:15)
[2018-01-19] MEDS ORDERED: ASPirin 81 mg TAB PO ONE (13:45)
[2018-01-19] MEDS ORDERED: PANTOPRAZOLE 40 MG TAB PO ONE (13:45)
[2018-01-19] MEDS ORDERED: METOPROLOL SUCCINATE XL 50 MG TAB PO ONE (13:45)
[2018-01-19] MEDS ORDERED: ENOXAPARIN SOD 40 MG/0.4 ML SYRINGE SC ONE (13:45)
[2018-01-19 14:31] LABS: Amylase 42 U/L (25-115); Lipase 786 U/L (73-393)
[2018-01-19] MEDS ORDERED: LIDOCAINE HCL 2% TOP JELLY 5ML TOP ONE (14:41)
[2018-01-19 16:00] VITALS: BP 138/89
[2018-01-19 17:00] VITALS: BP 138/89
[2018-01-19] MEDS: InsuLIN REG 1unit/0.01ml Soln (100units/ml) SC SCH ×2 (17:41→19:41)
[2018-01-19] MEDS: PIPERACILLIN-TAZOB 3.375GM 100 ML IV SCH (17:42)
[2018-01-19] MEDS: ACCU-CHEK COMFORT CURVE STRIP VI SCH ×2 (17:42→19:40)
[2018-01-19 20:00] VITALS: BP 97/59
[2018-01-19] MEDS ORDERED: ATORVASTATIN 20 MG TAB PO SCH (22:00)
[2018-01-19 22:25] VITALS: BP 97/59
[2018-01-19] MEDS: TEMAZEPAM 15 MG CAP PO PRN (22:29)
[2018-01-20] MEDS: ACCU-CHEK COMFORT CURVE STRIP VI SCH ×6 (00:11→22:30)
[2018-01-20] MEDS: InsuLIN REG 1unit/0.01ml Soln (100units/ml) SC SCH ×6 (00:18→22:31)
[2018-01-20] MEDS: PROMETHAZINE HCL 25 MG/ML 1ML IV PRN ×3 (01:10→17:51)
[2018-01-20] MEDS: ACETAMINOPHEN 500 MG TAB PO PRN ×2 (01:11→16:22)
[2018-01-20 05:26] VITALS: BP 104/66
[2018-01-20] MEDS: PIPERACILLIN-TAZOB 3.375GM 100 ML IV SCH ×5 (05:38→23:45)
[2018-01-20 06:01] LABS: Basophils # (auto) 0.1 uL; Basophils % (auto) 0.2 % (0.0-2.0); Eosinophils # (auto) 0 uL; Eosinophils % (auto) 0.1 % (0.0-7.0); Hematocrit 32.5 % (41.0-53.0); Lymphocytes # (auto) 1.1 uL; Lymphocytes % (auto) 4.6 % (10.0-50.0); Mean Corpuscular Hemoglobin 32.3 pg (28.0-32.0); Mean Corpuscular Hgb Conc. 33.9 g/dL (32.0-36.0); Mean Corpuscular Volume 95.3 fL (80.0-100.0); Monocytes # (auto) 1.7 uL; Monocytes % (auto) 6.8 % (0.0-12.0); Neutrophils # (auto) 21.4 uL; Neutrophils % (auto) 88.3 % (37.0-80.0); Platelet Count (auto) 382 10^3/uL (140-450); Red Blood Cells 3.41 10^6/uL (4.5-5.90); Red Cell Distribution Width 12.5 % (11.8-14.3); White Blood Cell 24.3 10^3/uL (4.4-10.8)
[2018-01-20 06:13] LABS: Albumin 2.6 g/dL (3.4-5.0); Bilirubin, Total 0.4 mg/dL (0.2-1.0); Calcium 8.9 mg/dL (8.5-10.1); Potassium 3.9 mmol/L (3.5-5.1); Total Protein 7.7 g/dL (6.4-8.2)
[2018-01-20 09:00] VITALS: BP 88/57
[2018-01-20] MEDS: PANTOPRAZOLE 40 MG TAB PO SCH (09:56)
[2018-01-20] MEDS: ASPirin 81 mg TAB PO SCH (09:56)
[2018-01-20] MEDS: CLOPIDOGREL BISULFATE 75 MG TAB PO SCH (09:56)
[2018-01-20] MEDS: ENOXAPARIN SOD 40 MG/0.4 ML SYRINGE SC SCH (09:57)
[2018-01-20] MEDS: METOPROLOL SUCCINATE XL 50 MG TAB PO SCH (10:00)
[2018-01-20] MEDS: INSULIN LANTUS (GLARGINE) 1 /0.01ml (100units/ml) SC SCH (10:04)
[2018-01-20] MEDS ORDERED: VANCOMYCIN PER PHARMACY 0 MG IV SCH (12:45)
[2018-01-20] MEDS ORDERED: SODIUM CHLORIDE 0.9% 1,000 ML IV ONE (12:45)
[2018-01-20 13:00] VITALS: BP 108/77
[2018-01-20] MEDS: SODIUM CHLORIDE 0.9% 1,000 ML IV SCH ×2 (13:40→22:31)
[2018-01-20] MEDS ORDERED: DEXTROSE (50%) 50ML SYRG IV PRN (16:30)
[2018-01-20] MEDS ORDERED: MORPHINE SULF INJ 2 MG/ML SYRINGE 1ML IV PRN ×2 (16:45)
[2018-01-20 17:00] VITALS: BP 135/83
[2018-01-20] MEDS: VANCOMYCIN 1GM/250ML 250 ML IV SCH (18:08)
[2018-01-20 22:00] VITALS: BP 145/57
[2018-01-20] MEDS: HYDROcodone-ACET 5/325MG TAB PO PRN (22:30)
[2018-01-20] MEDS: ATORVASTATIN 20 MG TAB PO SCH (22:31)
[2018-01-20] MEDS: TEMAZEPAM 15 MG CAP PO PRN (23:46)
[2018-01-21] MEDS: VANCOMYCIN 1GM/250ML 250 ML IV SCH ×2 (01:51→14:20)
[2018-01-21 05:00] VITALS: BP 138/61
[2018-01-21] MEDS: PIPERACILLIN-TAZOB 3.375GM 100 ML IV SCH ×3 (05:47→18:01)
[2018-01-21] MEDS: SODIUM CHLORIDE 0.9% 1,000 ML IV SCH ×3 (05:47→15:25)
[2018-01-21] MEDS: ACCU-CHEK COMFORT CURVE STRIP VI SCH ×3 (05:47→18:08)
[2018-01-21] MEDS: InsuLIN REG 1unit/0.01ml Soln (100units/ml) SC SCH ×3 (06:19→18:12)
[2018-01-21] MEDS: HYDROcodone-ACET 5/325MG TAB PO PRN ×3 (06:20→22:33)
[2018-01-21 08:00] VITALS: BP 134/80
[2018-01-21 09:15] LABS: Basophils # (auto) 0.1 uL; Basophils % (auto) 0.4 % (0.0-2.0); Eosinophils # (auto) 0.2 uL; Eosinophils % (auto) 0.7 % (0.0-7.0); Hemoglobin 10.2 g/dL (13.5-17.5); Lymphocytes # (auto) 1.1 uL; Lymphocytes % (auto) 5.1 % (10.0-50.0); Mean Corpuscular Hemoglobin 31.5 pg (28.0-32.0); Mean Corpuscular Volume 95.3 fL (80.0-100.0); Monocytes # (auto) 1.4 uL; Monocytes % (auto) 6.4 % (0.0-12.0); Neutrophils # (auto) 18.5 uL; Neutrophils % (auto) 87.4 % (37.0-80.0); Platelet Count (auto) 309 10^3/uL (140-450); Red Blood Cells 3.25 10^6/uL (4.5-5.90); Red Cell Distribution Width 12.5 % (11.8-14.3); White Blood Cell 21.2 10^3/uL (4.4-10.8)
[2018-01-21] MEDS: METOPROLOL SUCCINATE XL 50 MG TAB PO SCH (10:00)
[2018-01-21] MEDS: CLOPIDOGREL BISULFATE 75 MG TAB PO SCH (10:43)
[2018-01-21] MEDS: ASPirin 81 mg TAB PO SCH (10:43)
[2018-01-21] MEDS: PANTOPRAZOLE 40 MG TAB PO SCH (10:43)
[2018-01-21] MEDS: ENOXAPARIN SOD 40 MG/0.4 ML SYRINGE SC SCH (10:43)
[2018-01-21] MEDS: INSULIN LANTUS (GLARGINE) 1 /0.01ml (100units/ml) SC SCH (10:49)
[2018-01-21 12:00] VITALS: BP 118/66
[2018-01-21 16:00] VITALS: BP 111/61
[2018-01-21] MEDS: TAMSULOSIN HYDROCHLORIDE 0.4 MG CAP PO SCH (18:01)
[2018-01-21 22:00] VITALS: BP 123/77
[2018-01-21] MEDS: ATORVASTATIN 20 MG TAB PO SCH (22:11)
[2018-01-21] MEDS: TEMAZEPAM 15 MG CAP PO PRN (22:15)
[2018-01-22] MEDS: PIPERACILLIN-TAZOB 3.375GM 100 ML IV SCH ×5 (00:16→23:31)
[2018-01-22] MEDS: InsuLIN REG 1unit/0.01ml Soln (100units/ml) SC SCH ×5 (00:17→23:44)
[2018-01-22] MEDS: ACCU-CHEK COMFORT CURVE STRIP VI SCH ×5 (00:19→23:32)
[2018-01-22] MEDS: VANCOMYCIN 1GM/250ML 250 ML IV SCH ×2 (01:56→16:49)
[2018-01-22] MEDS: HYDROcodone-ACET 5/325MG TAB PO PRN ×3 (04:32→19:45)
[2018-01-22] MEDS: SODIUM CHLORIDE 0.9% 1,000 ML IV SCH ×5 (04:45→23:32)
[2018-01-22 05:00] VITALS: BP 114/67
[2018-01-22 06:26] LABS: Basophils # (auto) 0 uL; Basophils % (auto) 0.2 % (0.0-2.0); Eosinophils # (auto) 0.5 uL; Eosinophils % (auto) 3.4 % (0.0-7.0); Hematocrit 26.2 % (41.0-53.0); Hemoglobin 8.9 g/dL (13.5-17.5); Lymphocytes # (auto) 1.3 uL; Lymphocytes % (auto) 8.9 % (10.0-50.0); Mean Corpuscular Hemoglobin 32.1 pg (28.0-32.0); Mean Corpuscular Hgb Conc. 33.9 g/dL (32.0-36.0); Mean Corpuscular Volume 94.8 fL (80.0-100.0); Monocytes # (auto) 0.9 uL; Monocytes % (auto) 6.3 % (0.0-12.0); Neutrophils # (auto) 11.4 uL; Neutrophils % (auto) 81.2 % (37.0-80.0); Platelet Count (auto) 319 10^3/uL (140-450); Red Blood Cells 2.76 10^6/uL (4.5-5.90); Red Cell Distribution Width 12.3 % (11.8-14.3); White Blood Cell 14.1 10^3/uL (4.4-10.8)
[2018-01-22 06:42] LABS: Potassium 3.1 mmol/L (3.5-5.1)
[2018-01-22 06:44] LABS: BUN/Creatinine Ratio 4.9
[2018-01-22 06:47] LABS: Bilirubin, Total 0.5 mg/dL (0.2-1.0); Total Protein 6.8 g/dL (6.4-8.2)
[2018-01-22 08:00] VITALS: BP 112/56
[2018-01-22] MEDS: METOPROLOL SUCCINATE XL 50 MG TAB PO SCH (10:00)
[2018-01-22] MEDS: PANTOPRAZOLE 40 MG TAB PO SCH (10:09)
[2018-01-22] MEDS: CLOPIDOGREL BISULFATE 75 MG TAB PO SCH (10:09)
[2018-01-22] MEDS: ASPirin 81 mg TAB PO SCH (10:09)
[2018-01-22] MEDS: ENOXAPARIN SOD 40 MG/0.4 ML SYRINGE SC SCH (10:10)
[2018-01-22] MEDS: INSULIN LANTUS (GLARGINE) 1 /0.01ml (100units/ml) SC SCH (10:12)
[2018-01-22 12:46] VITALS: BP 134/78
[2018-01-22 16:39] VITALS: BP 127/82
[2018-01-22] MEDS: TAMSULOSIN HYDROCHLORIDE 0.4 MG CAP PO SCH (18:15)
[2018-01-22 22:00] VITALS: BP 130/80
[2018-01-22] MEDS: ATORVASTATIN 20 MG TAB PO SCH (22:18)
[2018-01-22] MEDS: TEMAZEPAM 15 MG CAP PO PRN (22:19)
[2018-01-22] MEDS ORDERED: POTASSIUM CHL 20 Meq TABLET PO ONE (22:45)
[2018-01-23] MEDS: VANCOMYCIN 1GM/250ML 250 ML IV SCH ×2 (02:00→15:07)
[2018-01-23] MEDS: HYDROcodone-ACET 5/325MG TAB PO PRN ×3 (04:16→18:57)
[2018-01-23] MEDS: PROMETHAZINE HCL 25 MG/ML 1ML IV PRN ×2 (04:16→18:58)
[2018-01-23 05:00] VITALS: BP 118/82
[2018-01-23] MEDS: PIPERACILLIN-TAZOB 3.375GM 100 ML IV SCH ×4 (06:09→23:40)
[2018-01-23] MEDS: ACCU-CHEK COMFORT CURVE STRIP VI SCH ×4 (06:09→23:40)
[2018-01-23 06:10] LABS: Basophils # (auto) 0 uL; Basophils % (auto) 0.5 % (0.0-2.0); Eosinophils # (auto) 0.4 uL; Eosinophils % (auto) 3.9 % (0.0-7.0); Hematocrit 29.2 % (41.0-53.0); Hemoglobin 10.2 g/dL (13.5-17.5); Lymphocytes # (auto) 0.7 uL; Lymphocytes % (auto) 7.5 % (10.0-50.0); Mean Corpuscular Hemoglobin 32.5 pg (28.0-32.0); Mean Corpuscular Hgb Conc. 34.8 g/dL (32.0-36.0); Mean Corpuscular Volume 93.4 fL (80.0-100.0); Monocytes # (auto) 0.7 uL; Neutrophils # (auto) 7.4 uL; Neutrophils % (auto) 80.1 % (37.0-80.0); Platelet Count (auto) 308 10^3/uL (140-450); Red Blood Cells 3.13 10^6/uL (4.5-5.90); Red Cell Distribution Width 12.5 % (11.8-14.3); White Blood Cell 9.3 10^3/uL (4.4-10.8)
[2018-01-23 06:16] LABS: BUN/Creatinine Ratio 5.4; Calcium 8.4 mg/dL (8.5-10.1); Potassium 3.3 mmol/L (3.5-5.1)
[2018-01-23] MEDS: InsuLIN REG 1unit/0.01ml Soln (100units/ml) SC SCH ×3 (06:32→18:00)
[2018-01-23 09:28] VITALS: BP 101/63
[2018-01-23] MEDS: METOPROLOL SUCCINATE XL 50 MG TAB PO SCH (10:00)
[2018-01-23] MEDS: ASPirin 81 mg TAB PO SCH (10:27)
[2018-01-23] MEDS: PANTOPRAZOLE 40 MG TAB PO SCH (10:27)
[2018-01-23] MEDS: CLOPIDOGREL BISULFATE 75 MG TAB PO SCH (10:28)
[2018-01-23] MEDS: ENOXAPARIN SOD 40 MG/0.4 ML SYRINGE SC SCH (10:30)
[2018-01-23] MEDS: INSULIN LANTUS (GLARGINE) 1 /0.01ml (100units/ml) SC SCH (10:31)
[2018-01-23] MEDS: SODIUM CHLORIDE 0.9% 1,000 ML IV SCH ×3 (11:35→20:45)
[2018-01-23 13:00] VITALS: BP 112/78
[2018-01-23 17:26] VITALS: BP 132/87
[2018-01-23] MEDS: TAMSULOSIN HYDROCHLORIDE 0.4 MG CAP PO SCH (18:57)
[2018-01-23] MEDS: ATORVASTATIN 20 MG TAB PO SCH (21:41)
[2018-01-23] MEDS: TEMAZEPAM 15 MG CAP PO PRN (21:41)
[2018-01-23 22:00] VITALS: BP 120/80
[2018-01-24] MEDS: InsuLIN REG 1unit/0.01ml Soln (100units/ml) SC SCH ×3 (00:01→12:00)
[2018-01-24] MEDS: VANCOMYCIN 1GM/250ML 250 ML IV SCH (01:55)
[2018-01-24] MEDS: SODIUM CHLORIDE 0.9% 1,000 ML IV SCH ×2 (03:40→10:05)
[2018-01-24] MEDS: HYDROcodone-ACET 5/325MG TAB PO PRN (04:05)
[2018-01-24] MEDS: PROMETHAZINE HCL 25 MG/ML 1ML IV PRN (04:06)
[2018-01-24 05:00] VITALS: BP 137/88
[2018-01-24] MEDS: ACCU-CHEK COMFORT CURVE STRIP VI SCH ×2 (05:44→12:17)
[2018-01-24] MEDS: PIPERACILLIN-TAZOB 3.375GM 100 ML IV SCH (05:44)
[2018-01-24 06:08] LABS: Basophils # (auto) 0.1 uL; Basophils % (auto) 0.5 % (0.0-2.0); Eosinophils # (auto) 0.3 uL; Eosinophils % (auto) 2.4 % (0.0-7.0); Hematocrit 29.2 % (41.0-53.0); Hemoglobin 10.1 g/dL (13.5-17.5); Lymphocytes # (auto) 0.8 uL; Lymphocytes % (auto) 7.4 % (10.0-50.0); Mean Corpuscular Hemoglobin 32.6 pg (28.0-32.0); Mean Corpuscular Hgb Conc. 34.7 g/dL (32.0-36.0); Monocytes # (auto) 0.9 uL; Monocytes % (auto) 8.8 % (0.0-12.0); Neutrophils # (auto) 8.5 uL; Neutrophils % (auto) 80.9 % (37.0-80.0); Platelet Count (auto) 331 10^3/uL (140-450); Red Cell Distribution Width 12.6 % (11.8-14.3); White Blood Cell 10.5 10^3/uL (4.4-10.8)
[2018-01-24 06:10] LABS: Calcium 8.4 mg/dL (8.5-10.1); Potassium 3.1 mmol/L (3.5-5.1)
[2018-01-24 06:12] LABS: BUN/Creatinine Ratio 6.1
[2018-01-24 08:00] VITALS: BP 109/73
[2018-01-24] MEDS ORDERED: AMOX-263 PO (09:38)
[2018-01-24] MEDS ORDERED: TAM04C PO (09:38)
[2018-01-24] MEDS ORDERED: AMOXICILLIN/CLAVUL 875 MG TAB PO SCH (10:00)
[2018-01-24] MEDS: METOPROLOL SUCCINATE XL 50 MG TAB PO SCH ×2 (10:00→11:54)
[2018-01-24] MEDS: ASPirin 81 mg TAB PO SCH (11:53)
[2018-01-24] MEDS: CLOPIDOGREL BISULFATE 75 MG TAB PO SCH (11:53)
[2018-01-24] MEDS: PANTOPRAZOLE 40 MG TAB PO SCH (11:54)
[2018-01-24] MEDS: ENOXAPARIN SOD 40 MG/0.4 ML SYRINGE SC SCH (11:54)
[2018-01-24] MEDS: INSULIN LANTUS (GLARGINE) 1 /0.01ml (100units/ml) SC SCH (12:37)
[2018-01-24 12:44] VITALS: BP 126/84
[2018-01-24 14:32] VITALS: BP 109/73
== END 2018-01-24 17:19 | disposition home or self-care (01) | DRG 720 ==
LOC: EDBD 09:18 → ER 09:18 → EDUNIT# 09:18 → TELE 09:19 → TELE-WESTW 15:47
PROVIDERS: ADMIT Internal Medicine; ATTEND Internal Medicine
DX: A41.81 Sepsis due to Enterococcus (principal); N17.0 Acute kidney failure with tubular necrosis; E43 Unspecified severe protein-calorie malnutrition; E11.22 Type 2 diabetes mellitus with diabetic chronic kidney disease; E11.40 Type 2 diabetes mellitus with diabetic neuropathy, unspecified; E11.65 Type 2 diabetes mellitus with hyperglycemia; N39.0 Urinary tract infection, site not specified; I12.9 Hypertensive chronic kidney disease with stage 1 through stage 4 chronic kidney disease, or unspecified chronic kidney disease; N18.9 Chronic kidney disease, unspecified; B95.8 Unspecified staphylococcus as the cause of diseases classified elsewhere; D64.9 Anemia, unspecified; E78.5 Hyperlipidemia, unspecified; F17.210 Nicotine dependence, cigarettes, uncomplicated; F41.9 Anxiety disorder, unspecified; I25.10 Atherosclerotic heart disease of native coronary artery without angina pectoris; N13.8 Other obstructive and reflux uropathy; N35.9 Urethral stricture, unspecified; N40.1 Benign prostatic hyperplasia with lower urinary tract symptoms; R32 Unspecified urinary incontinence; Z79.4 Long term (current) use of insulin; Z80.8 Family history of malignant neoplasm of other organs or systems; Z82.49 Family history of ischemic heart disease and other diseases of the circulatory system; Z95.5 Presence of coronary angioplasty implant and graft; Z79.899 Other long term (current) drug therapy; Z79.82 Long term (current) use of aspirin
CPT/HCPCS: 36415; 71045; 76775; 80048; 80053; 80061; 80202; 80307; 81001; 82150; 82550; 82565; 82962; 83036; 83605; 83690; 83735; 83880; 84443; 84484; 85025; 85379; 85610; 85652; 85730; 87040; 87077; 87086; 87088; 87186; 93005; 94761; 96361; 96365; 96375; C9113; J1815; J2405; J2543

== ENCOUNTER 2018-02-01 14:37 | Inpatient (IN) | payer MEDICAID ==
[~2018-02-01] VITALS: Ht 188 cm; Wt 105.0 kg
[~2018-02-01 14:37] MED LIST changes: +AMOX-263 PO; +TAM04C PO
[2018-02-01] MEDS ORDERED: SODIUM CHLORIDE 0.9% 500 ML IV ONE (14:47)
[2018-02-01 15:17] LABS: Basophils # (auto) 0.1 uL; Eosinophils # (auto) 0.3 uL; Eosinophils % (auto) 3.5 % (0.0-7.0); Lymphocytes # (auto) 1.7 uL; Monocytes # (auto) 0.5 uL
[2018-02-01 15:18] LABS: Basophils % (auto) 0.8 % (0.0-2.0); Hematocrit 30.3 % (41.0-53.0); Hemoglobin 10.1 g/dL (13.5-17.5); Lymphocytes % (auto) 17.5 % (10.0-50.0); Mean Corpuscular Hemoglobin 31.1 pg (28.0-32.0); Mean Corpuscular Hgb Conc. 33.5 g/dL (32.0-36.0); Monocytes % (auto) 5.7 % (0.0-12.0); Neutrophils # (auto) 6.9 uL; Neutrophils % (auto) 72.5 % (37.0-80.0); Platelet Count (auto) 727 10^3/uL (140-450); Red Blood Cells 3.26 10^6/uL (4.5-5.90); Red Cell Distribution Width 13.6 % (11.8-14.3); White Blood Cell 9.5 10^3/uL (4.4-10.8)
[2018-02-01 15:28] LABS: Alanine Aminotransferase 15 U/L (16-61); Albumin 2.2 g/dL (3.4-5.0); Alkaline Phosphatase 117 U/L (45-117); Anion Gap 10 (5-15); Aspartate Aminotransferase 10 U/L (15-37); BUN/Creatinine Ratio 9.8; Bilirubin, Total 0.2 mg/dL (0.2-1.0); Blood Urea Nitrogen 12 mg/dL (7-18); Calcium 8.5 mg/dL (8.5-10.1); Carbon Dioxide 25 mmol/L (21-32); Chloride 96 mmol/L (98-107); GFR African American 84 mL/min; GFR Non-African American 69 mL/min; Magnesium 1.9 mg/dL (1.6-2.6); Potassium 4.3 mmol/L (3.5-5.1); Sodium 131 mmol/L (136-145); Total Protein 8.1 g/dL (6.4-8.2)
[2018-02-01 15:37] LABS: Glucose 412 mg/dL (74-106)
[2018-02-01] MEDS ORDERED: InsuLIN REG 1unit/0.01ml Soln (100units/ml) IV ONE (16:15)
[2018-02-01] MEDS: SODIUM CHLORIDE 0.9% 1,000 ML IV SCH ×2 (16:23→23:52)
[2018-02-01] MEDS ORDERED: NITROGLYCERIN 0.4 MG SL TAB SL PRN (16:30)
[2018-02-01] MEDS ORDERED: DEXTROSE (50%) 50ML SYRG IV PRN (16:30)
[2018-02-01] MEDS ORDERED: CLOPIDOGREL BISULFATE 75 MG TAB PO ONE (16:30)
[2018-02-01] MEDS ORDERED: ONDANSETRON HCL 4 MG/2 ML VIAL IV PRN (16:30)
[2018-02-01] MEDS ORDERED: MORPHINE SULF(PF) 0.5MG/ML 10ML VIAL IV PRN (16:30)
[2018-02-01] MEDS ORDERED: ASPirin-EC 81 mg tab PO ONE (16:30)
[2018-02-01] MEDS ORDERED: DOCUSATE SOD 100 MG CAP PO PRN (16:30)
[2018-02-01] MEDS ORDERED: ACETAMINOPHEN 325 MG TAB PO PRN (16:30)
[2018-02-01] MEDS: FAMOTIDINE 20 MG TAB PO SCH ×2 (16:36→22:00)
[2018-02-01] MEDS: InsuLIN REG 1unit/0.01ml Soln (100units/ml) SC SCH ×2 (17:00→22:00)
[2018-02-01] MEDS: ACCU-CHEK COMFORT CURVE STRIP VI SCH ×2 (17:00→22:40)
[2018-02-01] MEDS: Boost Glucose Control 8 Ounces PO SCH (20:12)
[2018-02-01 20:47] LABS: Urine Bacteria NONE SEEN /hpf (None Seen); Urine Blood Negative /uL (Negative); Urine WBC 11 /hpf (0 - 3)
[2018-02-01 21:00] VITALS: BP 108/74
[2018-02-01 22:00] VITALS: BP_SYST 108; BP_SYST 78; BP_SYST 99; BP_DIAS 43; BP_DIAS 67; BP_DIAS 74
[2018-02-01] MEDS: AMOXICILLIN/CLAVUL 875 MG TAB PO SCH (22:00)
[2018-02-01] MEDS: ATORVASTATIN 20 MG TAB PO SCH (22:39)
[2018-02-01] MEDS: HYDROcodone-ACET 5/325MG TAB PO PRN (22:40)
[2018-02-01] MEDS: INSULIN LANTUS (GLARGINE) 1 /0.01ml (100units/ml) SC SCH (22:40)
[2018-02-01] MEDS: TEMAZEPAM 15 MG CAP PO PRN (23:52)
[2018-02-02 05:00] VITALS: BP 115/59
[2018-02-02 06:08] LABS: Basophils # (auto) 0.1 uL; Eosinophils # (auto) 0.4 uL; Hemoglobin 10.2 g/dL (13.5-17.5); Monocytes # (auto) 0.5 uL; White Blood Cell 9.2 10^3/uL (4.4-10.8)
[2018-02-02 06:10] LABS: Basophils % (auto) 0.8 % (0.0-2.0); Eosinophils % (auto) 4.3 % (0.0-7.0); Lymphocytes # (auto) 1.9 uL; Lymphocytes % (auto) 20.5 % (10.0-50.0); Mean Corpuscular Hemoglobin 31.5 pg (28.0-32.0); Mean Corpuscular Hgb Conc. 34.2 g/dL (32.0-36.0); Mean Corpuscular Volume 92.1 fL (80.0-100.0); Monocytes % (auto) 5.6 % (0.0-12.0); Neutrophils # (auto) 6.3 uL; Neutrophils % (auto) 68.8 % (37.0-80.0); Nucleated Red Blood Cells % 0.1 %; Red Blood Cells 3.25 10^6/uL (4.5-5.90); Red Cell Distribution Width 13.7 % (11.8-14.3)
[2018-02-02 06:19] LABS: Chloride 103 mmol/L (98-107); Potassium 3.8 mmol/L (3.5-5.1); Sodium 139 mmol/L (136-145)
[2018-02-02 06:23] LABS: Platelet Count (auto) 751 10^3/uL (140-450)
[2018-02-02 06:27] LABS: Alanine Aminotransferase 15 U/L (16-61); Albumin 2.2 g/dL (3.4-5.0); Anion Gap 11 (5-15); Aspartate Aminotransferase 13 U/L (15-37); Blood Urea Nitrogen 12 mg/dL (7-18); Calcium 8.8 mg/dL (8.5-10.1); Carbon Dioxide 25 mmol/L (21-32); GFR African American 125 mL/min; GFR Non-African American 104 mL/min; Glucose 148 mg/dL (74-106)
[2018-02-02 06:33] LABS: Alkaline Phosphatase 106 U/L (45-117); Bilirubin, Total 0.7 mg/dL (0.2-1.0); Total Protein 7.7 g/dL (6.4-8.2)
[2018-02-02] MEDS: InsuLIN REG 1unit/0.01ml Soln (100units/ml) SC SCH ×4 (07:07→20:57)
[2018-02-02] MEDS: INSULIN LANTUS (GLARGINE) 1 /0.01ml (100units/ml) SC SCH ×2 (07:08→20:56)
[2018-02-02] MEDS: ACCU-CHEK COMFORT CURVE STRIP VI SCH ×4 (07:08→20:57)
[2018-02-02 08:00] VITALS: BP 118/68
[2018-02-02 09:00] VITALS: BP 118/68
[2018-02-02] MEDS: MULTIPLE VITAMIN TAB PO SCH (10:28)
[2018-02-02] MEDS: AMOXICILLIN/CLAVUL 875 MG TAB PO SCH ×2 (10:28→20:46)
[2018-02-02] MEDS: FAMOTIDINE 20 MG TAB PO SCH ×2 (10:28→20:45)
[2018-02-02] MEDS: CLOPIDOGREL BISULFATE 75 MG TAB PO SCH (10:28)
[2018-02-02] MEDS: ASPirin-EC 81 mg tab PO SCH (10:28)
[2018-02-02] MEDS: Boost Glucose Control 8 Ounces PO SCH ×3 (10:29→17:37)
[2018-02-02] MEDS: SODIUM CHLORIDE 0.9% 1,000 ML IV SCH ×2 (10:29→17:33)
[2018-02-02 13:00] VITALS: BP 125/82
[2018-02-02] MEDS: HYDROcodone-ACET 5/325MG TAB PO PRN ×2 (13:47→20:14)
[2018-02-02] MEDS: HYDROXYUREA 500 MG CAP PO ONE ×2 (16:45→18:20)
[2018-02-02 17:48] VITALS: BP 128/81
[2018-02-02 17:54] LABS: Ferritin 803.1 ng/mL (10-322); Folate (Folic Acid) 8.95 ng/mL (5.38-24)
[2018-02-02] MEDS: ATORVASTATIN 20 MG TAB PO SCH (20:46)
[2018-02-02 21:44] VITALS: BP 109/72
[2018-02-03] MEDS: SODIUM CHLORIDE 0.9% 1,000 ML IV SCH ×3 (02:51→18:58)
[2018-02-03 05:10] VITALS: BP 116/77
[2018-02-03 05:50] LABS: Basophils # (auto) 0.1 uL; Eosinophils # (auto) 0.4 uL; Hematocrit 30.2 % (41.0-53.0); Lymphocytes % (auto) 14.6 % (10.0-50.0); Monocytes # (auto) 0.5 uL
[2018-02-03 05:53] LABS: Hemoglobin 10.4 g/dL (13.5-17.5); Lymphocytes # (auto) 1.4 uL; Mean Corpuscular Hemoglobin 31.6 pg (28.0-32.0); Mean Corpuscular Hgb Conc. 34.3 g/dL (32.0-36.0); Mean Corpuscular Volume 92.2 fL (80.0-100.0); Monocytes % (auto) 5.7 % (0.0-12.0); Neutrophils # (auto) 6.9 uL; Neutrophils % (auto) 74.7 % (37.0-80.0); Red Blood Cells 3.28 10^6/uL (4.5-5.90); Red Cell Distribution Width 13.1 % (11.8-14.3); White Blood Cell 9.3 10^3/uL (4.4-10.8)
[2018-02-03 05:55] LABS: Platelet Count (auto) 723 10^3/uL (140-450)
[2018-02-03 06:14] LABS: Chloride 100 mmol/L (98-107); Potassium 4.3 mmol/L (3.5-5.1); Sodium 135 mmol/L (136-145)
[2018-02-03 06:22] LABS: Alanine Aminotransferase 15 U/L (16-61); Albumin 2.2 g/dL (3.4-5.0); Anion Gap 10 (5-15); Aspartate Aminotransferase 11 U/L (15-37); BUN/Creatinine Ratio 10.5; Blood Urea Nitrogen 10 mg/dL (7-18); Calcium 8.8 mg/dL (8.5-10.1); Carbon Dioxide 25 mmol/L (21-32); GFR African American 112 mL/min; GFR Non-African American 92 mL/min; Glucose 198 mg/dL (74-106)
[2018-02-03 06:27] LABS: Alkaline Phosphatase 106 U/L (45-117); Bilirubin, Total 0.3 mg/dL (0.2-1.0); Total Protein 7.8 g/dL (6.4-8.2)
[2018-02-03] MEDS: InsuLIN REG 1unit/0.01ml Soln (100units/ml) SC SCH ×4 (06:42→21:29)
[2018-02-03] MEDS: ACCU-CHEK COMFORT CURVE STRIP VI SCH ×4 (06:43→21:31)
[2018-02-03] MEDS: INSULIN LANTUS (GLARGINE) 1 /0.01ml (100units/ml) SC SCH ×2 (06:43→21:30)
[2018-02-03 08:00] VITALS: BP 118/80
[2018-02-03 09:00] VITALS: BP 111/80
[2018-02-03] MEDS ORDERED: HYDR-4683 PO (09:37)
[2018-02-03] MEDS ORDERED: LORA-654 GT (09:37)
[2018-02-03] MEDS ORDERED: DEXL30CA4 PO (09:37)
[2018-02-03] MEDS: ASPirin-EC 81 mg tab PO SCH (09:45)
[2018-02-03] MEDS: MULTIPLE VITAMIN TAB PO SCH (09:46)
[2018-02-03] MEDS: HYDROcodone-ACET 5/325MG TAB PO PRN ×3 (09:46→21:34)
[2018-02-03] MEDS: CLOPIDOGREL BISULFATE 75 MG TAB PO SCH (09:46)
[2018-02-03] MEDS: AMOXICILLIN/CLAVUL 875 MG TAB PO SCH ×2 (09:46→21:22)
[2018-02-03] MEDS: FAMOTIDINE 20 MG TAB PO SCH ×2 (09:46→21:22)
[2018-02-03] MEDS: Boost Glucose Control 8 Ounces PO SCH ×3 (09:47→18:58)
[2018-02-03 13:00] VITALS: BP 95/72
[2018-02-03 17:00] VITALS: BP 118/82
[2018-02-03] MEDS: FERROUS SULFATE 325 MG TAB PO SCH (17:39)
[2018-02-03] MEDS: ATORVASTATIN 20 MG TAB PO SCH (21:22)
[2018-02-03 21:57] VITALS: BP 115/75
[2018-02-04 04:47] VITALS: BP 104/70
[2018-02-04] MEDS: SODIUM CHLORIDE 0.9% 1,000 ML IV SCH ×3 (05:50→19:52)
[2018-02-04] MEDS: ACCU-CHEK COMFORT CURVE STRIP VI SCH ×4 (06:30→21:33)
[2018-02-04] MEDS: InsuLIN REG 1unit/0.01ml Soln (100units/ml) SC SCH ×4 (06:30→21:32)
[2018-02-04] MEDS: INSULIN LANTUS (GLARGINE) 1 /0.01ml (100units/ml) SC SCH ×2 (06:30→21:32)
[2018-02-04] MEDS: FERROUS SULFATE 325 MG TAB PO SCH ×2 (08:07→18:06)
[2018-02-04] MEDS: Boost Glucose Control 8 Ounces PO SCH ×3 (08:09→18:07)
[2018-02-04 09:00] VITALS: BP 105/70
[2018-02-04] MEDS: AMOXICILLIN/CLAVUL 875 MG TAB PO SCH (10:35)
[2018-02-04] MEDS: ASPirin-EC 81 mg tab PO SCH (10:35)
[2018-02-04] MEDS: CLOPIDOGREL BISULFATE 75 MG TAB PO SCH (10:36)
[2018-02-04] MEDS: MULTIPLE VITAMIN TAB PO SCH (10:36)
[2018-02-04] MEDS: FAMOTIDINE 20 MG TAB PO SCH ×2 (10:36→21:23)
[2018-02-04] MEDS: HYDROcodone-ACET 5/325MG TAB PO PRN ×2 (10:38→19:52)
[2018-02-04] MEDS ORDERED: SODIUM FERR GLUC 62.5MG/5ML 125 MG in SODIUM CHL 0.9% 100 ML IV SCH (12:00)
[2018-02-04 13:00] VITALS: BP 113/74
[2018-02-04] MEDS: SODIUM FERR GLUC 62.5MG/5ML 125 MG in SODIUM CHL 0.9% 100 ML IV SCH (13:42)
[2018-02-04 17:33] VITALS: BP 111/71
[2018-02-04] MEDS: ATORVASTATIN 20 MG TAB PO SCH (21:24)
[2018-02-05] VITALS (13 sets, daily range): BP systolic 65–117; BP diastolic 42–79
[2018-02-05] MEDS: SODIUM CHLORIDE 0.9% 1,000 ML IV SCH ×3 (04:14→20:00)
[2018-02-05 05:53] LABS: Basophils # (auto) 0.1 uL; Eosinophils # (auto) 0.4 uL; Hematocrit 29.9 % (41.0-53.0); Hemoglobin 10.4 g/dL (13.5-17.5); Lymphocytes # (auto) 1.6 uL; Mean Corpuscular Hgb Conc. 34.7 g/dL (32.0-36.0); Monocytes # (auto) 0.6 uL; Neutrophils # (auto) 6.1 uL; Red Cell Distribution Width 13.5 % (11.8-14.3)
[2018-02-05 05:57] LABS: Basophils % (auto) 0.8 % (0.0-2.0); Eosinophils % (auto) 5.1 % (0.0-7.0); Lymphocytes % (auto) 18.1 % (10.0-50.0); Mean Corpuscular Hemoglobin 31.9 pg (28.0-32.0); Mean Corpuscular Volume 92.1 fL (80.0-100.0); Monocytes % (auto) 6.3 % (0.0-12.0); Neutrophils % (auto) 69.7 % (37.0-80.0); Platelet Count (auto) 680 10^3/uL (140-450); Red Blood Cells 3.25 10^6/uL (4.5-5.90); White Blood Cell 8.8 10^3/uL (4.4-10.8)
[2018-02-05 06:05] LABS: Albumin 2.2 g/dL (3.4-5.0); BUN/Creatinine Ratio 16.5; Bilirubin, Total 0.2 mg/dL (0.2-1.0); Calcium 8.7 mg/dL (8.5-10.1); Potassium 3.8 mmol/L (3.5-5.1); Total Protein 7.6 g/dL (6.4-8.2)
[2018-02-05] MEDS: INSULIN LANTUS (GLARGINE) 1 /0.01ml (100units/ml) SC SCH ×2 (06:28→21:53)
[2018-02-05] MEDS: ACCU-CHEK COMFORT CURVE STRIP VI SCH ×4 (06:28→21:54)
[2018-02-05] MEDS: InsuLIN REG 1unit/0.01ml Soln (100units/ml) SC SCH ×4 (06:28→21:53)
[2018-02-05] MEDS: Boost Glucose Control 8 Ounces PO SCH ×3 (08:12→18:21)
[2018-02-05] MEDS: FERROUS SULFATE 325 MG TAB PO SCH ×2 (08:12→18:20)
[2018-02-05] MEDS: HYDROcodone-ACET 5/325MG TAB PO PRN ×3 (08:16→21:54)
[2018-02-05] MEDS: ASPirin-EC 81 mg tab PO SCH (09:52)
[2018-02-05] MEDS: MULTIPLE VITAMIN TAB PO SCH (09:52)
[2018-02-05] MEDS: CLOPIDOGREL BISULFATE 75 MG TAB PO SCH (09:52)
[2018-02-05] MEDS: FAMOTIDINE 20 MG TAB PO SCH ×2 (09:52→21:52)
[2018-02-05] MEDS: SODIUM FERR GLUC 62.5MG/5ML 125 MG in SODIUM CHL 0.9% 100 ML IV SCH (14:10)
[2018-02-05] MEDS ORDERED: SODIUM CHLORIDE 0.9% 1,000 ML IV ONE (21:00)
[2018-02-05] MEDS: ATORVASTATIN 20 MG TAB PO SCH (21:52)
[2018-02-05] MEDS: TEMAZEPAM 15 MG CAP PO PRN (21:54)
[2018-02-06] MEDS: SODIUM CHLORIDE 0.9% 1,000 ML IV SCH ×3 (04:20→22:00)
[2018-02-06 05:00] VITALS: BP 104/57
[2018-02-06] MEDS: InsuLIN REG 1unit/0.01ml Soln (100units/ml) SC SCH ×4 (06:50→22:01)
[2018-02-06] MEDS: INSULIN LANTUS (GLARGINE) 1 /0.01ml (100units/ml) SC SCH ×2 (06:51→22:01)
[2018-02-06] MEDS: ACCU-CHEK COMFORT CURVE STRIP VI SCH ×4 (06:51→22:01)
[2018-02-06] MEDS: FERROUS SULFATE 325 MG TAB PO SCH ×2 (08:31→18:19)
[2018-02-06] MEDS: Boost Glucose Control 8 Ounces PO SCH ×3 (08:31→18:20)
[2018-02-06 09:00] VITALS: BP 123/64
[2018-02-06] MEDS: FAMOTIDINE 20 MG TAB PO SCH ×2 (10:15→22:01)
[2018-02-06] MEDS: HYDROcodone-ACET 5/325MG TAB PO PRN ×2 (10:15→20:15)
[2018-02-06] MEDS: CLOPIDOGREL BISULFATE 75 MG TAB PO SCH (10:15)
[2018-02-06] MEDS: MULTIPLE VITAMIN TAB PO SCH (10:15)
[2018-02-06] MEDS: ASPirin-EC 81 mg tab PO SCH (10:15)
[2018-02-06 13:00] VITALS: BP 96/69
[2018-02-06] MEDS: SODIUM FERR GLUC 62.5MG/5ML 125 MG in SODIUM CHL 0.9% 100 ML IV SCH (13:42)
[2018-02-06 17:00] VITALS: BP 126/78
[2018-02-06] MEDS: MIDODRINE HCL 10 MG TAB PO SCH (18:19)
[2018-02-06 20:00] VITALS: BP 124/70
[2018-02-06 22:00] VITALS: BP_SYST 124; BP_SYST 80; BP_SYST 97; BP_DIAS 44; BP_DIAS 61; BP_DIAS 70
[2018-02-06] MEDS: ATORVASTATIN 20 MG TAB PO SCH (22:00)
[2018-02-06] MEDS: TEMAZEPAM 15 MG CAP PO PRN (22:02)
[2018-02-07 05:00] VITALS: BP 103/68
[2018-02-07] MEDS: SODIUM CHLORIDE 0.9% 1,000 ML IV SCH ×2 (05:20→13:56)
[2018-02-07] MEDS: MIDODRINE HCL 10 MG TAB PO SCH ×2 (06:18→12:23)
[2018-02-07] MEDS: INSULIN LANTUS (GLARGINE) 1 /0.01ml (100units/ml) SC SCH (06:31)
[2018-02-07] MEDS: InsuLIN REG 1unit/0.01ml Soln (100units/ml) SC SCH ×2 (06:31→12:00)
[2018-02-07] MEDS: ACCU-CHEK COMFORT CURVE STRIP VI SCH ×2 (06:32→11:30)
[2018-02-07] MEDS: HYDROcodone-ACET 5/325MG TAB PO PRN ×3 (06:33→15:42)
[2018-02-07 07:30] VITALS: BP 98/70
[2018-02-07 08:34] LABS: Basophils # (auto) 0.1 uL; Basophils % (auto) 0.9 % (0.0-2.0); Eosinophils # (auto) 0.4 uL; Eosinophils % (auto) 4.8 % (0.0-7.0); Hematocrit 32.1 % (41.0-53.0); Hemoglobin 10.5 g/dL (13.5-17.5); Lymphocytes # (auto) 1.5 uL; Lymphocytes % (auto) 16.8 % (10.0-50.0); Mean Corpuscular Hemoglobin 30.4 pg (28.0-32.0); Mean Corpuscular Hgb Conc. 32.8 g/dL (32.0-36.0); Mean Corpuscular Volume 92.6 fL (80.0-100.0); Monocytes # (auto) 0.5 uL; Monocytes % (auto) 5.2 % (0.0-12.0); Neutrophils # (auto) 6.6 uL; Neutrophils % (auto) 72.3 % (37.0-80.0); Nucleated Red Blood Cells % 0.1 %; Platelet Count (auto) 656 10^3/uL (140-450); Red Blood Cells 3.46 10^6/uL (4.5-5.90); Red Cell Distribution Width 13.6 % (11.8-14.3); White Blood Cell 9.1 10^3/uL (4.4-10.8)
[2018-02-07] MEDS: FERROUS SULFATE 325 MG TAB PO SCH ×2 (08:46→09:39)
[2018-02-07] MEDS: Boost Glucose Control 8 Ounces PO SCH ×2 (08:47→12:24)
[2018-02-07 08:53] LABS: BUN/Creatinine Ratio 11.6; Calcium 9.3 mg/dL (8.5-10.1); Potassium 3.9 mmol/L (3.5-5.1)
[2018-02-07] MEDS: MULTIPLE VITAMIN TAB PO SCH (09:40)
[2018-02-07] MEDS: FAMOTIDINE 20 MG TAB PO SCH (09:40)
[2018-02-07] MEDS: CLOPIDOGREL BISULFATE 75 MG TAB PO SCH (09:41)
[2018-02-07] MEDS: ASPirin-EC 81 mg tab PO SCH (09:41)
[2018-02-07 12:00] VITALS: BP 110/71
[2018-02-07] MEDS: SODIUM FERR GLUC 62.5MG/5ML 125 MG in SODIUM CHL 0.9% 100 ML IV SCH (13:55)
[2018-02-07 16:20] VITALS: BP 112/72
== END 2018-02-07 17:40 | disposition home or self-care (01) | DRG 204 ==
LOC: EDUNIT# 14:37 → EDBD 14:37 → ER 14:37 → TELE 14:38 → TELE-WESTW 20:20
PROVIDERS: ADMIT Internal Medicine; ATTEND Internal Medicine
DX: I95.1 Orthostatic hypotension (principal); E43 Unspecified severe protein-calorie malnutrition; E11.21 Type 2 diabetes mellitus with diabetic nephropathy; E11.43 Type 2 diabetes mellitus with diabetic autonomic (poly)neuropathy; D50.9 Iron deficiency anemia, unspecified; F17.210 Nicotine dependence, cigarettes, uncomplicated; E11.65 Type 2 diabetes mellitus with hyperglycemia; E87.1 Hypo-osmolality and hyponatremia; I25.10 Atherosclerotic heart disease of native coronary artery without angina pectoris; D63.8 Anemia in other chronic diseases classified elsewhere; E27.40 Unspecified adrenocortical insufficiency; N18.2 Chronic kidney disease, stage 2 (mild); E11.22 Type 2 diabetes mellitus with diabetic chronic kidney disease; E78.5 Hyperlipidemia, unspecified; I25.2 Old myocardial infarction; Z79.4 Long term (current) use of insulin; Z80.8 Family history of malignant neoplasm of other organs or systems; Z82.49 Family history of ischemic heart disease and other diseases of the circulatory system; Z95.5 Presence of coronary angioplasty implant and graft; Z87.440 Personal history of urinary (tract) infections; R33.9 Retention of urine, unspecified; Z68.29 Body mass index [BMI] 29.0-29.9, adult; D47.3 Essential (hemorrhagic) thrombocythemia
CPT/HCPCS: 36415; 71045; 80048; 80053; 81001; 82533; 82607; 82728; 82746; 82962; 83036; 83540; 83550; 83735; 83880; 84443; 84484; 85025; 87081; 87086; 93005; 93886; 94761; 96361; 96374; J1815

== ENCOUNTER 2018-10-16 10:25 | Inpatient (IN) | payer MEDICAID ==
[~2018-10-16] VITALS: Ht 177.8 cm; Wt 106.5 kg
[~2018-10-16 10:25] MED LIST changes: -AMOX-263 PO; +DEXL30CA4 PO; +HYDR-4683 PO; +LORA-654 GT; -METO25TA62 PO; -TAM04C PO
[2018-10-16 11:54] LABS: Basophils # (auto) 0 uL; Basophils % (auto) 0.7 % (0.0-2.0); Eosinophils # (auto) 0.1 uL; Eosinophils % (auto) 1.1 % (0.0-7.0); Hematocrit 43.2 % (41.0-53.0); Hemoglobin 14.3 g/dL (13.5-17.5); Lymphocytes # (auto) 0.8 uL; Lymphocytes % (auto) 11.1 % (10.0-50.0); Mean Corpuscular Hemoglobin 32.1 pg (28.0-32.0); Mean Corpuscular Hgb Conc. 33.1 g/dL (32.0-36.0); Mean Corpuscular Volume 97.1 fL (80.0-100.0); Monocytes # (auto) 0.3 uL; Monocytes % (auto) 4.6 % (0.0-12.0); Neutrophils # (auto) 6.3 uL; Neutrophils % (auto) 82.5 % (37.0-80.0); Nucleated Red Blood Cells % 0.1 %; Platelet Count (auto) 296 10^3/uL (140-450); Red Blood Cells 4.45 10^6/uL (4.5-5.90); Red Cell Distribution Width 13.3 % (11.8-14.3); White Blood Cell 7.6 10^3/uL (4.4-10.8)
[2018-10-16] MEDS ORDERED: SODIUM CHLORIDE 0.9% 1,000 ML IVB ONE (11:56)
[2018-10-16] MEDS ORDERED: PROMETHAZINE HCL 25 MG/ML 1ML ONE (12:00)
[2018-10-16] MEDS ORDERED: ONDANSETRON HCL 4 MG/2 ML VIAL IV ONE (12:00)
[2018-10-16 12:11] LABS: Albumin 3.8 g/dL (3.4-5.0); Calcium 9.1 mg/dL (8.5-10.1); Potassium 4.1 mmol/L (3.5-5.1)
[2018-10-16 12:14] LABS: BUN/Creatinine Ratio 11.3; Bilirubin, Total 0.5 mg/dL (0.2-1.0); Total Protein 7.6 g/dL (6.4-8.2)
[2018-10-16] MEDS ORDERED: PROMETHAZINE HCL 25 MG/ML 1ML IV ONE (12:15)
[2018-10-16 12:44] LABS: INR 0.88 (0.9-1.15); Partial Thromboplastin Time 32.1 sec (23.78-33.04); Prothrombin Time 9.5 sec (9.27-12.13)
[2018-10-16 14:13] LABS: Urine Amorphous Crystal FEW /hpf (None Seen); Urine Bacteria FEW /hpf (None Seen); Urine Blood Negative /uL (Negative); Urine Specific Gravity 1.016 (1.001-1.035); Urine WBC 21 /hpf (0 - 3)
[2018-10-16] MEDS ORDERED: cefTRIAXone 1GM/50ML D5W 50 ML IV ONE (14:30)
[2018-10-16] MEDS ORDERED: PANTOPRAZOLE 40 MG/10 ML VIAL IV ONE (17:15)
[2018-10-16] MEDS ORDERED: DEXTROSE (50%) 50ML SYRG IV PRN (19:30)
[2018-10-16] MEDS ORDERED: MORPHINE SULFATE 4 MG/ML SYR/VIAL IV PRN ×2 (19:30)
[2018-10-16] MEDS ORDERED: NITROGLYCERIN 0.4 MG SL TAB SL PRN (19:30)
[2018-10-16] MEDS ORDERED: ONDANSETRON HCL 4 MG/2 ML VIAL IV PRN (19:30)
[2018-10-16] MEDS: SODIUM CHLORIDE 0.9% 1,000 ML IV SCH (19:51)
[2018-10-16] MEDS: PANTOPRAZOLE 40 MG/10 ML VIAL IV SCH (22:16)
[2018-10-17] VITALS (7 sets, daily range): BP systolic 119–168; BP diastolic 73–92
--- NOTE | 2018-10-17 00:30 | NUR ---
MedSurg Admit from ER Received pt. from ER via javier. Pt. resting comfortably in bed with eyes closed. No S/S of distress or SOB, no pain noted or reported. Pt. is alert, A&Ox4. Pt. denies nausea at this time. Updated pt. on POC, pt. verbalized understanding. Informed pt. to remain NPO, pt. verbalized understanding. Bed locked in lowest position with call light within reach. Will continue to monitor Q1hr and PRN throughout the shift.
[2018-10-17] MEDS ORDERED: ALPR0.25 PO (01:05)
[2018-10-17] MEDS ORDERED: METF500T PO (01:05)
[2018-10-17] MEDS: InsuLIN REG 1unit/0.01ml Soln (100units/ml) SC SCH ×4 (01:06→17:39)
[2018-10-17] MEDS: ACCU-CHEK COMFORT CURVE STRIP VI SCH ×4 (01:06→17:39)
[2018-10-17] MEDS: SODIUM CHLORIDE 0.9% 1,000 ML IV SCH ×3 (03:01→20:30)
[2018-10-17 06:06] LABS: Basophils # (auto) 0 uL; Basophils % (auto) 0.2 % (0.0-2.0); Eosinophils # (auto) 0.1 uL; Eosinophils % (auto) 1.7 % (0.0-7.0); Hematocrit 40.3 % (41.0-53.0); Hemoglobin 13.5 g/dL (13.5-17.5); Lymphocytes # (auto) 1.5 uL; Lymphocytes % (auto) 21.9 % (10.0-50.0); Mean Corpuscular Hemoglobin 32.6 pg (28.0-32.0); Mean Corpuscular Hgb Conc. 33.6 g/dL (32.0-36.0); Mean Corpuscular Volume 97.1 fL (80.0-100.0); Monocytes # (auto) 0.4 uL; Monocytes % (auto) 6.2 % (0.0-12.0); Neutrophils # (auto) 4.7 uL; Nucleated Red Blood Cells % 0.1 %; Platelet Count (auto) 271 10^3/uL (140-450); Red Blood Cells 4.15 10^6/uL (4.5-5.90); Red Cell Distribution Width 13.5 % (11.8-14.3); White Blood Cell 6.8 10^3/uL (4.4-10.8)
[2018-10-17 06:19] LABS: Potassium 3.4 mmol/L (3.5-5.1)
[2018-10-17 06:33] LABS: BUN/Creatinine Ratio 15.4; Calcium 8.9 mg/dL (8.5-10.1)
[2018-10-17 06:35] LABS: % Iron Saturation 47.2 % (20-55)
--- NOTE | 2018-10-17 07:42 | NUR ---
OPENING SHIFT NOTE ASSUMED CARE OF PATIENT. PATIENT RESTING COMFORTABLY IN BED WITH EYES CLOSED. RESPIRATIONS EVEN AND UNLABORED. BED IN LOWEST LOCKED POSITION, CALL LIGHT WITHIN REACH. WILL CONTINUE TO MONITOR.
[2018-10-17] MEDS: PANTOPRAZOLE 40 MG/10 ML VIAL IV SCH ×2 (09:53→22:33)
[2018-10-17] MEDS: cefTRIAXone 1GM/50ML D5W 50 ML IV SCH (09:53)
[2018-10-17] MEDS ORDERED: NICOTINE 21MG/24 HR TOPICAL PATCH TD SCH (10:00)
--- NOTE | 2018-10-17 14:50 | NUR ---
AT BEDSIDE DR [place] AT BEDSIDE AT THIS TIME. NEW ORDERS RECEIVED FOR EGD TOMORROW. CONTINUING TO MONITOR.
--- NOTE | 2018-10-17 18:58 | NUR ---
END OF SHIFT NOTE PATIENT RESTING COMFORTABLY IN BED. NO S/S OF DISTRESS OR SOB NOTED. BED IN LOWEST LOCKED POSITION, CALL LIGHT WITHIN REACH. WILL ENDORSE CARE TO NOC RN.
[2018-10-17] MEDS ORDERED: POTASSIUM CHLORIDE 20 MEQ, LIDOCAINE 1% (LOCAL ANESTH.) 2 ML in SODIUM CHL 0.9% 100 ML IV ONE (19:15)
--- NOTE | 2018-10-17 19:25 | NUR ---
Opening Shift Note SBAR report received from DIVINE Lagunas. Assumed care of patient, awake and alert 4x and ambulatory , at bedside. No S/S of distress/SOB or pain. complaints of not receiving his psych medications, informed that MD will be informed. Instructed on POC and to call for assistance PRN, will continue to monitor for changes Q1hr and PRN.Physical Assessment to follow.
[2018-10-17] MEDS ORDERED: diphenhdrAMINE HCL 25 MG CAP PO ONE (20:30)
[2018-10-17] MEDS ORDERED: ALPRAZolam 0.25 MG TAB PO PRN (20:30)
--- NOTE | 2018-10-17 20:30 | NUR ---
MD. DE PAZ AT [facility] WILL ADD ORDERS.
[2018-10-17] MEDS: PROMETHAZINE HCL 25 MG/ML 1ML IV PRN (20:47)
--- NOTE | 2018-10-17 23:05 | NUR ---
IV insertion / IV removal RT HAND IV DC'd with clean sterile technique, catheter fully intact. Pressure dressing applied to site. Patient tolerated well. IV access obtained, via clean sterile technique by inserting 20G gauge catheter at LT WRIST after 1 attempt. IV secured properly. No trauma to site. Patient tolerated well.
[2018-10-18] MEDS: ACCU-CHEK COMFORT CURVE STRIP VI SCH ×4 (00:29→18:20)
[2018-10-18] MEDS: SODIUM CHLORIDE 0.9% 1,000 ML IV SCH ×2 (03:30→11:30)
[2018-10-18] MEDS: InsuLIN REG 1unit/0.01ml Soln (100units/ml) SC SCH ×4 (05:18→18:00)
[2018-10-18 05:23] VITALS: BP 103/65
[2018-10-18 06:58] LABS: Basophils # (auto) 0 uL; Basophils % (auto) 0.5 % (0.0-2.0); Eosinophils # (auto) 0.2 uL; Eosinophils % (auto) 2.4 % (0.0-7.0); Hematocrit 41.5 % (41.0-53.0); Lymphocytes # (auto) 1.6 uL; Lymphocytes % (auto) 26.1 % (10.0-50.0); Mean Corpuscular Hemoglobin 32.7 pg (28.0-32.0); Mean Corpuscular Hgb Conc. 33.8 g/dL (32.0-36.0); Mean Corpuscular Volume 96.8 fL (80.0-100.0); Monocytes # (auto) 0.5 uL; Monocytes % (auto) 7.7 % (0.0-12.0); Neutrophils % (auto) 63.3 % (37.0-80.0); Nucleated Red Blood Cells % 0.2 %; Platelet Count (auto) 269 10^3/uL (140-450); Red Blood Cells 4.29 10^6/uL (4.5-5.90); Red Cell Distribution Width 13.4 % (11.8-14.3); White Blood Cell 6.3 10^3/uL (4.4-10.8)
--- NOTE | 2018-10-18 07:13 | NUR ---
closing Shift Note SBAR report given to DIVINE Lagunas. pt sleeping at the moment. No S/S of distress/SOB or pain. previously instructed on POC and to call for assistance PRN. plans for EGD today. npo since midnight.
[2018-10-18 07:26] LABS: Potassium 3.3 mmol/L (3.5-5.1)
[2018-10-18 07:32] LABS: BUN/Creatinine Ratio 15.2; Calcium 8.7 mg/dL (8.5-10.1)
--- NOTE | 2018-10-18 07:50 | NUR ---
OPENING SHIFT NOTE ASSUMED CARE OF PATIENT PATIENT AWAKE AND ALERT SITTING UP IN BED. NO S/S OF DISTRESS OR SOB NOTED. BED IN LOWEST LOCKED POSITION, CALL LIGHT WITHIN REACH. REVIEWED POC WITH PATIENT AND INSTRUCTED NOT TO EAT OR DRINK ANYTHING AT THIS TIME DUE TO PROCEDURE THIS MORNING. WILL CONTINUE TO MONITOR.
[2018-10-18] MEDS: PROMETHAZINE HCL 25 MG/ML 1ML IV PRN (08:01)
[2018-10-18] MEDS ORDERED: CHOL400C7 PO (08:15)
[2018-10-18] MEDS ORDERED: SEMA2INJ SC (08:15)
[2018-10-18] MEDS ORDERED: OME20T PO (08:15)
[2018-10-18] MEDS ORDERED: ONDA-155 PO (08:15)
[2018-10-18] MEDS ORDERED: METF500S PO (08:15)
[2018-10-18] MEDS ORDERED: ASPI81CH43 GT (08:15)
[2018-10-18] MEDS ORDERED: CITA-244 PO (08:15)
[2018-10-18] MEDS ORDERED: GABA300C PO (08:15)
[2018-10-18] MEDS ORDERED: INSLISPI SC (08:15)
[2018-10-18 09:00] VITALS: BP 128/75
[2018-10-18] MEDS: cefTRIAXone 1GM/50ML D5W 50 ML IV SCH (09:00)
[2018-10-18] MEDS: PANTOPRAZOLE 40 MG/10 ML VIAL IV SCH (10:00)
[2018-10-18] MEDS ORDERED: FLUMAZENIL 0.1 MG/ML INJ 10ML MDV IV ONE (11:25)
[2018-10-18] MEDS ORDERED: SODIUM CHLORIDE LOCK 10 ML ONE (11:25)
[2018-10-18] MEDS ORDERED: LIDOCAINE VISCOUS 2% 15ML UD ONE (11:25)
[2018-10-18] MEDS ORDERED: NALOXONE HCL 0.4 MG/ML VIAL ONE (11:25)
[2018-10-18] MEDS ORDERED: diphenhdrAMINE HCL 50 MG/1 ML VL ONE (11:26)
--- NOTE | 2018-10-18 11:35 | NUR ---
OFF UNIT PATIENT OFF UNIT AT THIS TIME FOR PROCEDURE. AWAITING RETURN.
[2018-10-18] MEDS: MIDAZOLAM HCL 5 MG/ML-1ML VIAL ONE ×2 (11:46→11:49)
[2018-10-18] MEDS: fentaNYL CITRATE 100 MCG/2 ML VL ONE ×2 (11:46→11:49)
[2018-10-18 17:00] VITALS: BP 115/83
--- NOTE | 2018-10-18 19:50 | NUR ---
Patient left Against Medical Advice. IV removed. Patient left with assistance of his .
== END 2018-10-18 19:50 | disposition left against medical advice (07) | DRG 466 ==
LOC: ER 10:25 → EDBD 10:25 → EDUNIT# 10:25 → OVERFLOW 19:39 → EAST 23:56
PROVIDERS: ADMIT Nurse Practitioner Acute Care; ATTEND Internal Medicine
PROC: 0DJ08ZZ Inspection of Upper Intestinal Tract, Via Natural or Artificial Opening Endoscopic (ICD-10-PCS; principal; 2018-10-18 11:43)
DX: T83.511A Infection and inflammatory reaction due to indwelling urethral catheter, initial encounter (principal); K92.0 Hematemesis; I50.40 Unspecified combined systolic (congestive) and diastolic (congestive) heart failure; E10.319 Type 1 diabetes mellitus with unspecified diabetic retinopathy without macular edema; I25.10 Atherosclerotic heart disease of native coronary artery without angina pectoris; F41.9 Anxiety disorder, unspecified; Y83.8 Other surgical procedures as the cause of abnormal reaction of the patient, or of later complication, without mention of misadventure at the time of the procedure; Y92.89 Other specified places as the place of occurrence of the external cause; Z53.21 Procedure and treatment not carried out due to patient leaving prior to being seen by health care provider; E78.5 Hyperlipidemia, unspecified; F17.210 Nicotine dependence, cigarettes, uncomplicated; H54.8 Legal blindness, as defined in USA; I25.2 Old myocardial infarction; M51.36 Other intervertebral disc degeneration, lumbar region; N13.9 Obstructive and reflux uropathy, unspecified; Z79.02 Long term (current) use of antithrombotics/antiplatelets; Z79.4 Long term (current) use of insulin; Z80.8 Family history of malignant neoplasm of other organs or systems; Z82.49 Family history of ischemic heart disease and other diseases of the circulatory system; Z95.5 Presence of coronary angioplasty implant and graft
CPT/HCPCS: 36415; 51702; 71045; 74176; 80048; 80053; 80061; 81001; 82150; 82962; 83036; 83540; 83550; 83690; 83735; 85025; 85610; 85730; 86850; 86900; 86901; 93005; 94761; 96365; 96375; A6257; C9113; G0378; J0696; J2001; J2250; J2405

== ENCOUNTER 2019-01-25 09:16 | Day surgery (SDC) | payer MEDICAID ==
[2019-01-23 15:22] LABS: Basophils # (auto) 0.1 uL; Basophils % (auto) 0.8 % (0.0-2.0); Eosinophils # (auto) 0.2 uL; Eosinophils % (auto) 1.9 % (0.0-7.0); Hemoglobin 14.2 g/dL (13.5-17.5); Lymphocytes % (auto) 23.6 % (10.0-50.0); Mean Corpuscular Hemoglobin 32.1 pg (28.0-32.0); Mean Corpuscular Volume 97.3 fL (80.0-100.0); Monocytes # (auto) 0.4 uL; Monocytes % (auto) 4.6 % (0.0-12.0); Neutrophils # (auto) 5.8 uL; Neutrophils % (auto) 69.1 % (37.0-80.0); Platelet Count (auto) 368 10^3/uL (140-450); Red Blood Cells 4.42 10^6/uL (4.5-5.90); Red Cell Distribution Width 13.7 % (11.8-14.3); White Blood Cell 8.4 10^3/uL (4.4-10.8)
[2019-01-23 15:29] LABS: Albumin 3.8 g/dL (3.4-5.0); Calcium 9.4 mg/dL (8.5-10.1); Potassium 4.1 mmol/L (3.5-5.1)
[2019-01-23 15:31] LABS: INR < 0.93 (0.9-1.15); Partial Thromboplastin Time 33.6 sec (23.64-32.05)
[2019-01-23 15:33] LABS: BUN/Creatinine Ratio 13.6; Bilirubin, Total 0.4 mg/dL (0.2-1.0)
[~2019-01-25] VITALS: Ht 188 cm; Wt 103.0 kg
[~2019-01-25 09:16] MED LIST changes: +ASPI81CH43 PO; -ATOR10TA52 PO; -CLOP75TA41 PO; -DEXL30CA4 PO; +GABA300C PO; -HYDR-4683 PO; -INSLANTI SC; -LORA-654 GT; +METF500T PO; +ONDA-155 PO; +PANT40TA2 PO
[2019-01-25] MEDS ORDERED: ceFAZolin 1GM/50ML 50 ML IV ONE (09:44)
[2019-01-25] MEDS ORDERED: NEOMYCIN-BACITRACIN-POLYM 15GM TOP OINT TOP ONE (10:08)
[2019-01-25] MEDS ORDERED: ROPIVACAINE 0.5% (5MG/ML) 20ML AMPULE IJ ONE ×2 (10:08→11:54)
[2019-01-25] MEDS ORDERED: fentaNYL CITRATE 100 MCG/2 ML VL ONE (11:26)
[2019-01-25] MEDS ORDERED: PROPOFOL 10 MG/ML 20 ML IV ONE ×2 (11:26→12:49)
[2019-01-25] MEDS ORDERED: ONDANSETRON HCL 4 MG/2 ML VIAL ONE (11:26)
[2019-01-25] MEDS ORDERED: SODIUM CHLORIDE LOCK 10 ML ONE (11:26)
[2019-01-25] MEDS ORDERED: MIDAZOLAM HCL 1MG/1ML-2 ML VIAL ONE (11:26)
[2019-01-25] MEDS ORDERED: METOCLOPRAMIDE HCL 5MG/ml INJ 2ml VIAL IV ONE (12:00)
[2019-01-25] MEDS ORDERED: ACCU-CHEK COMFORT CURVE STRIP VI ONE (12:00)
[2019-01-25] MEDS ORDERED: HYDROmorphone HCL 2 MG/ML VL IV PRN (12:00)
[2019-01-25] MEDS ORDERED: IPRATROPIUM BROM 0.5 MG/2.5ML INH SOL NEB STA (13:16)
[2019-01-25] MEDS ORDERED: ALBUTEROL SULF 2.5 MG/0.5ML(0.5%) NEB SOLN NEB STA (13:16)
[2019-01-25] MEDS ORDERED: IPRATROPIUM BROM 0.5 MG/2.5ML INH SOL ONE (13:26)
[2019-01-25] MEDS ORDERED: ALBUTEROL SULF 2.5 MG/0.5ML(0.5%) NEB SOLN ONE (13:26)
--- NOTE | 2019-01-25 13:35 | NUR ---
Respiratory note: PT REFUSED SCHEDULED MED NEB TX. PT STATES HE HAS A HARD TIME COUGHING, BUT TAKING A MED NEB TX WILL MAKE HIM NAUSEOUS. MED NEB HELD. DR. EVANGELISTA AND RN WERE PRESENT AT BEDSIDE WHILE PT REFUSED. NO SOB NOTED. B/S ARE CLEAR THROUGHOUT AND DIMINISHED IN THE BASES POSTERIORLY. POX 93% ON RA.
[2019-01-25 13:47] VITALS: BP 102/71
== END 2019-01-25 14:03 | disposition home or self-care (01) ==
LOC: SUR 09:16
PROVIDERS: ATTEND Podiatrist Foot & Ankle Surgery
DX: S92.421A Displaced fracture of distal phalanx of right great toe, initial encounter for closed fracture (principal); E11.319 Type 2 diabetes mellitus with unspecified diabetic retinopathy without macular edema; E11.40 Type 2 diabetes mellitus with diabetic neuropathy, unspecified; I10 Essential (primary) hypertension; K21.9 Gastro-esophageal reflux disease without esophagitis; E66.9 Obesity, unspecified; I25.2 Old myocardial infarction; F17.210 Nicotine dependence, cigarettes, uncomplicated; Z68.29 Body mass index [BMI] 29.0-29.9, adult; Z79.84 Long term (current) use of oral hypoglycemic drugs; Z79.82 Long term (current) use of aspirin; Z79.899 Other long term (current) drug therapy; Z95.9 Presence of cardiac and vascular implant and graft, unspecified; Z98.890 Other specified postprocedural states; X58.XXXA Exposure to other specified factors, initial encounter; Y93.89 Activity, other specified; Y92.89 Other specified places as the place of occurrence of the external cause; Y99.8 Other external cause status
CPT/HCPCS: 28505; 36415; 73620; 80053; 82962; 85025; 85610; 85730; 93005; C1713; C1769; J0690; J2250; J2405; J2704; J2795; J3010

== ENCOUNTER 2022-03-08 12:32 | Inpatient (IN) | payer MEDICARE, MEDICAID ==
[~2022-03-08] VITALS: Ht 188 cm; Wt 99.1 kg
[2022-03-08] MEDS ORDERED: SODIUM CHLORIDE 0.9% 1,000 ML IVB ONE (14:30)
[2022-03-08] MEDS ORDERED: PROCHLORPERAZINE EDISYLATE 5 MG/ML 2ML VIAL IV ONE (14:30)
[2022-03-08] MEDS ORDERED: MORPHINE SULFATE 4 MG/ML SYR/VIAL IV ONE (14:30)
[2022-03-08] MEDS ORDERED: PANTOPRAZOLE 40 MG/10 ML VIAL INJ IV ONE (14:30)
[2022-03-08 15:24] LABS: Basophils # (auto) 0 10 ^3/uL (0-0.2); Basophils % (auto) 0.2 % (0.0-2.0); Eosinophils # (auto) 0 10 ^3/uL (0-0.8); Eosinophils % (auto) 0.1 % (0.0-7.0); Hematocrit 39.9 % (41.0-53.0); Hemoglobin 13.2 g/dL (13.5-17.5); Lymphocytes # (auto) 0.6 10 ^3/uL (0.4-5.4); Mean Corpuscular Hemoglobin 31.8 pg (28.0-32.0); Mean Corpuscular Hgb Conc. 33.2 g/dL (32.0-36.0); Mean Corpuscular Volume 95.6 fL (80.0-100.0); Monocytes # (auto) 0.6 10 ^3/uL (0-1.3); Monocytes % (auto) 4.5 % (0.0-12.0); Neutrophils # (auto) 12.6 10 ^3/uL (1.6-8.6); Neutrophils % (auto) 91.2 % (37.0-80.0); Red Blood Cells 4.17 10^6/uL (4.5-5.90); Red Cell Distribution Width 13.2 % (11.8-14.3); White Blood Cell 13.8 10^3/uL (4.4-10.8)
[2022-03-08 15:40] LABS: Albumin 3.8 g/dL (3.4-5.0); Calcium 8.8 mg/dL (8.5-10.1)
[2022-03-08 15:43] LABS: BUN/Creatinine Ratio 13.6
[2022-03-08 15:46] LABS: Bilirubin, Total 0.9 mg/dL (0.2-1.0); Total Protein 6.8 g/dL (6.4-8.2)
[2022-03-08 16:19] LABS: Urine Bacteria FEW /hpf (None Seen); Urine Blood 2+ /uL (Negative); Urine Mucus FEW (None Seen); Urine Specific Gravity 1.017 (1.001-1.035); Urine WBC 38 /hpf (0 - 3)
[2022-03-08] MEDS ORDERED: cefTRIAXone 1GM/50ML D5W 50 ML IV ONE (16:30)
[2022-03-08] MEDS ORDERED: DEXTROSE (50%) 50ML SYRG IV PRN (17:15)
[2022-03-08] MEDS: ENOXAPARIN SOD 40 MG/0.4 ML SYRINGE SC SCH (17:18)
[2022-03-08] MEDS ORDERED: HYDROmorphone HCL 2 MG/ML VL/or syr IV PRN (17:45)
[2022-03-08] MEDS ORDERED: ONDANSETRON HCL 4 MG/2 ML VIAL IV PRN (17:45)
[2022-03-08] MEDS ORDERED: DOCUSATE SOD 100 MG CAP PO PRN (17:45)
[2022-03-08] MEDS ORDERED: ACETAMINOPHEN 325 MG TAB PO PRN (17:45)
[2022-03-08] MEDS: GABAPENTIN 300 MG CAP PO SCH (22:00)
[2022-03-08] MEDS: InsuLIN REG 1unit/0.01ml Soln (100units/ml) SC SCH (22:00)
[2022-03-08 23:58] VITALS: BP 160/84
[2022-03-08] MEDS: ACCU-CHEK COMFORT CURVE STRIP VI SCH (23:59)
[2022-03-08] MEDS: SODIUM CHLORIDE 0.9% 1,000 ML IV SCH (23:59)
[2022-03-08] MEDS: SODIUM CHLOR 0.9% PF (SALINE LOCK) 10ML VIAL/SYR IV SCH (23:59)
[2022-03-09] MEDS: GABAPENTIN 300 MG CAP PO SCH ×3 (05:32→22:00)
[2022-03-09] MEDS: SODIUM CHLOR 0.9% PF (SALINE LOCK) 10ML VIAL/SYR IV SCH ×3 (05:32→22:25)
[2022-03-09 06:22] VITALS: BP 105/68
[2022-03-09] MEDS: InsuLIN REG 1unit/0.01ml Soln (100units/ml) SC SCH ×4 (06:37→22:00)
[2022-03-09] MEDS: ACCU-CHEK COMFORT CURVE STRIP VI SCH ×4 (06:37→22:25)
[2022-03-09 08:00] VITALS: BP 107/68
[2022-03-09 09:00] VITALS: BP 107/68
[2022-03-09] MEDS: ASPirin 81 mg TAB PO SCH (09:33)
[2022-03-09] MEDS: ENOXAPARIN SOD 40 MG/0.4 ML SYRINGE SC SCH (09:33)
[2022-03-09] MEDS: PANTOPRAZOLE 40 MG TAB PO SCH (09:33)
[2022-03-09] MEDS ORDERED: MORPHINE SULFATE INJ 2 MG/ml SYRG IV PRN (12:15)
[2022-03-09 12:57] VITALS: BP 121/72
[2022-03-09] MEDS: SODIUM CHLORIDE 0.9% 1,000 ML IV SCH (13:41)
[2022-03-09] MEDS: HYDROcodone-ACET 5/325MG TAB PO PRN (13:54)
[2022-03-09] MEDS ORDERED: ASPI1TAB91 PO (15:08)
[2022-03-09] MEDS ORDERED: CLIN1SOL TOP (15:08)
[2022-03-09] MEDS ORDERED: ATOR40TA52 PO (15:08)
[2022-03-09 16:45] VITALS: BP_SYST 118; BP_SYST 149; BP_DIAS 78; BP_DIAS 88
[2022-03-09 22:00] VITALS: BP 143/80
[2022-03-10] MEDS: HYDROcodone-ACET 5/325MG TAB PO PRN ×2 (02:33→10:17)
[2022-03-10] MEDS: SODIUM CHLORIDE 0.9% 1,000 ML IV SCH (03:05)
[2022-03-10 05:00] VITALS: BP 136/78
[2022-03-10 05:42] LABS: Basophils # (auto) 0 10 ^3/uL (0-0.2); Basophils % (auto) 0.3 % (0.0-2.0); Eosinophils # (auto) 0 10 ^3/uL (0-0.8); Eosinophils % (auto) 0.2 % (0.0-7.0); Hematocrit 34.4 % (41.0-53.0); Hemoglobin 11.9 g/dL (13.5-17.5); Lymphocytes # (auto) 0.7 10 ^3/uL (0.4-5.4); Lymphocytes % (auto) 14.6 % (10.0-50.0); Mean Corpuscular Hemoglobin 32.4 pg (28.0-32.0); Mean Corpuscular Hgb Conc. 34.5 g/dL (32.0-36.0); Mean Corpuscular Volume 93.6 fL (80.0-100.0); Monocytes # (auto) 0.3 10 ^3/uL (0-1.3); Monocytes % (auto) 5.8 % (0.0-12.0); Neutrophils # (auto) 3.8 10 ^3/uL (1.6-8.6); Neutrophils % (auto) 79.1 % (37.0-80.0); Red Blood Cells 3.67 10^6/uL (4.5-5.90); Red Cell Distribution Width 12.7 % (11.8-14.3); White Blood Cell 4.9 10^3/uL (4.4-10.8)
[2022-03-10] MEDS: GABAPENTIN 300 MG CAP PO SCH ×3 (06:00→22:00)
[2022-03-10 06:11] LABS: BUN/Creatinine Ratio 16.3; Calcium 8.5 mg/dL (8.5-10.1)
[2022-03-10] MEDS: SODIUM CHLOR 0.9% PF (SALINE LOCK) 10ML VIAL/SYR IV SCH ×3 (06:34→22:07)
[2022-03-10] MEDS: InsuLIN REG 1unit/0.01ml Soln (100units/ml) SC SCH ×4 (06:34→22:00)
[2022-03-10] MEDS: ACCU-CHEK COMFORT CURVE STRIP VI SCH ×4 (06:34→22:07)
[2022-03-10 08:10] VITALS: BP 131/74
[2022-03-10 09:00] VITALS: BP 131/74
[2022-03-10] MEDS: ASPirin 81 mg TAB PO SCH (10:17)
[2022-03-10] MEDS: PANTOPRAZOLE 40 MG TAB PO SCH (10:17)
[2022-03-10] MEDS ORDERED: cefTRIAXone 1GM/50ML D5W 50 ML IV ONE (12:45)
[2022-03-10 13:00] VITALS: BP 130/72
[2022-03-10] MEDS ORDERED: ZOLPIDEM TARTRATE 5 MG TAB PO PRN (13:00)
[2022-03-10 16:47] VITALS: BP 108/71
[2022-03-10] MEDS ORDERED: LANS30CA57 PO (18:13)
[2022-03-10 22:00] VITALS: BP 120/69
[2022-03-11 05:00] VITALS: BP 150/78
[2022-03-11] MEDS: GABAPENTIN 300 MG CAP PO SCH (06:00)
[2022-03-11] MEDS: InsuLIN REG 1unit/0.01ml Soln (100units/ml) SC SCH (06:05)
[2022-03-11] MEDS: SODIUM CHLOR 0.9% PF (SALINE LOCK) 10ML VIAL/SYR IV SCH (06:05)
[2022-03-11] MEDS: ACCU-CHEK COMFORT CURVE STRIP VI SCH (06:06)
[2022-03-11] MEDS: SODIUM CHLORIDE 0.9% 1,000 ML IV SCH (06:25)
[2022-03-11 09:00] VITALS: BP 137/78
[2022-03-11] MEDS ORDERED: cefTRIAXone 1GM/50ML D5W 50 ML IV SCH (09:00)
[2022-03-11] MEDS: ASPirin 81 mg TAB PO SCH (09:16)
[2022-03-11] MEDS: PANTOPRAZOLE 40 MG TAB PO SCH (09:17)
[2022-03-11] MEDS ORDERED: LEVO500T31 PO (11:53)
[2022-03-11 13:00] VITALS: BP 141/81
[2022-03-11 13:27] VITALS: BP 137/78
== END 2022-03-11 14:48 | disposition home or self-care (01) | DRG 872 ==
LOC: ER 12:32 → OVERFLOW 17:38 → WEST WING 23:22
PROVIDERS: ADMIT Internal Medicine; ATTEND Internal Medicine
DX: A41.51 Sepsis due to Escherichia coli [E. coli] (principal); N39.0 Urinary tract infection, site not specified; E86.0 Dehydration; J44.9 Chronic obstructive pulmonary disease, unspecified; N18.9 Chronic kidney disease, unspecified; E78.5 Hyperlipidemia, unspecified; G62.9 Polyneuropathy, unspecified; E11.22 Type 2 diabetes mellitus with diabetic chronic kidney disease; F17.210 Nicotine dependence, cigarettes, uncomplicated; I25.10 Atherosclerotic heart disease of native coronary artery without angina pectoris; Z20.822 Contact with and (suspected) exposure to COVID-19; Z79.82 Long term (current) use of aspirin; Z79.899 Other long term (current) drug therapy; Z80.42 Family history of malignant neoplasm of prostate; Z80.8 Family history of malignant neoplasm of other organs or systems; Z85.46 Personal history of malignant neoplasm of prostate; Z95.5 Presence of coronary angioplasty implant and graft; Z71.6 Tobacco abuse counseling; N40.0 Benign prostatic hyperplasia without lower urinary tract symptoms
CPT/HCPCS: 36415; 74176; 80048; 80053; 81001; 82150; 82962; 83036; 83605; 83690; 84154; 85025; 87040; 87086; 87088; 87186; 96361; 96374; 96375; C9113; G0378; J0696; J2405

== ENCOUNTER 2023-05-04 20:25 | Emergency (ER) | payer MEDICARE, MEDICAID ==
[~2023-05-04] VITALS: Ht 188 cm; Wt 81.8 kg
[~2023-05-04 20:25] MED LIST changes: -ASPI81CH43 PO; +ASPI81TA28 PO; +ATOR40TA52 PO; +CLIN1SOL TOP; +LANS30CA57 PO; +LEVO500T31 PO; -METF500T PO; -ONDA-155 PO; -PANT40TA2 PO
[2023-05-04 22:01] LABS: Basophils # (auto) 0 10 ^3/uL (0-0.2); Basophils % (auto) 0.7 % (0.0-2.0); Eosinophils # (auto) 0.2 10 ^3/uL (0-0.8); Eosinophils % (auto) 2.6 % (0.0-7.0); Hematocrit 33.8 % (41.0-53.0); Hemoglobin 11.3 g/dL (13.5-17.5); Lymphocytes # (auto) 1.7 10 ^3/uL (0.4-5.4); Lymphocytes % (auto) 23.2 % (10.0-50.0); Mean Corpuscular Hemoglobin 29.6 pg (28.0-32.0); Mean Corpuscular Hgb Conc. 33.3 g/dL (32.0-36.0); Mean Corpuscular Volume 89.1 fL (80.0-100.0); Monocytes # (auto) 0.5 10 ^3/uL (0-1.3); Monocytes % (auto) 6.5 % (0.0-12.0); Neutrophils # (auto) 4.9 10 ^3/uL (1.6-8.6); Red Cell Distribution Width 16.3 % (11.8-14.3); White Blood Cell 7.2 10^3/uL (4.4-10.8)
[2023-05-04 22:19] LABS: Alanine Aminotransferase 18 U/L (7-40); Albumin 4.5 g/dL (3.2-4.8); Alkaline Phosphatase 141 U/L (46-116); Anion Gap 7 (5-15); Aspartate Aminotransferase 12 U/L (13-40); BUN/Creatinine Ratio 21.7 (10.0-20.0); Bilirubin, Total 0.3 mg/dL (0.2-1.0); Blood Urea Nitrogen 13 mg/dL (9-23); Calcium 9.5 mg/dL (8.7-10.4); Carbon Dioxide 28 mmol/L (20-30); Chloride 105 mmol/L (98-107); Glucose 136 mg/dL (74-106); Potassium 3.8 mmol/L (3.5-5.1); Sodium 140 mmol/L (136-145); Total Protein 7.3 g/dL (5.7-8.2)
[2023-05-04 22:20] LABS: INR 0.98 (0.9-1.15); Partial Thromboplastin Time 25.9 SEC (24.5-34.5); Prothrombin Time 10.3 sec (9.3-11.8)
[2023-05-04 23:55] VITALS: PULSE 72; RESP 12; O2SAT 96
[2023-05-05] MEDS ORDERED: SODIUM CHLORIDE 0.9% 1,000 ML IV ONE (01:45)
[2023-05-05 03:10] LABS: Urine Bacteria MANY /hpf (None Seen); Urine Blood 2+ /uL (Negative); Urine Clarity HAZY (Clear); Urine Color Yellow (Yellow); Urine Hyaline Cast FEW /lpf (0 - 2); Urine Mucus FEW (None Seen); Urine Protein, UAD 1+ (Negative); Urine Specific Gravity 1.013 (1.001-1.035); Urine Urobilinogen Normal (Negative); Urine WBC 266 /hpf (0 - 3); Urine WBC Clumps PRESENT /hpf (None Seen); Urine pH 6.5 (5.0-8.0)
[2023-05-05] MEDS ORDERED: cefTRIAXone 1GM/50ML D5W 50 ML IV ONE (03:30)
[2023-05-05] MEDS ORDERED: CEPH500C PO (03:32)
[2023-05-05 08:00] VITALS: PULSE 72; RESP 12; TEMP 98.3; O2SAT 98
[2023-05-05 12:00] VITALS: BP 121/78; PULSE 64; RESP 16; O2SAT 97
== END 2023-05-05 13:25 | disposition hospice, inpatient (51) ==
LOC: ER 20:25 → EDUNIT# 20:25 → EDBD 20:25 → ER 05-05 13:25
DX: R31.9 Hematuria, unspecified (principal); N39.0 Urinary tract infection, site not specified; K59.00 Constipation, unspecified; E11.22 Type 2 diabetes mellitus with diabetic chronic kidney disease; N18.9 Chronic kidney disease, unspecified; J44.9 Chronic obstructive pulmonary disease, unspecified; E78.5 Hyperlipidemia, unspecified; I25.2 Old myocardial infarction; I25.10 Atherosclerotic heart disease of native coronary artery without angina pectoris; F17.210 Nicotine dependence, cigarettes, uncomplicated; Z79.82 Long term (current) use of aspirin; Z79.2 Long term (current) use of antibiotics; Z79.899 Other long term (current) drug therapy
CPT/HCPCS: 36415; 74176; 80053; 81001; 83605; 85025; 85610; 85730; 87086; 96361; 96365; 99285; J0696; J7030